=== PATIENT | male | born 1960 | race Caucasian/White ===

== ENCOUNTER → 2017-02-19 | Outpatient (CLI) | payer OTHER ==
--- NOTE | 2017-02-20 06:56 | CONS ---
DATE OF CONSULTATION: 02/19/2017 CONSULTATION/NEW PATIENT EVALUATION HISTORY OF PRESENT ILLNESS/SLEEP-WAKE EVALUATION: A 56-year-old gentleman who has been evaluated in the sleep center for obstructive sleep apnea-hypopnea syndrome. Patient had been diagnosed with obstructive sleep apnea about 10 years ago, was started on treatment with BiPAP and continued to use his BiPAP equipment all these years, but he lost 250 pounds since time when he had sleep studies. At that time his weight was about 600 pounds and presently he has significant difficulties with usage of his BiPAP equipment. The patient is also additionally on oxygen supplement during sleep with BiPAP 2 L per minute. SLEEP SCHEDULE: Patient's usual sleep schedule from 5 a.m. until 2 p.m. FALLING ASLEEP: No problem with falling asleep. He has TV set in bedroom. DURING SLEEP: He sleeps on the side or in the chair. He wakes up from sleep 2 times with stopped breathing during the sleep. DURING THE DAY/WAKE STATE: In the morning, he wakes up tired, has difficulties to pay attention, falling asleep during the day, has irritability, ( ) dysfunction. [place] Sleepiness Scale increased to 10. PAST MEDICAL HISTORY: Positive for diabetes mellitus, hypothyroidism, low testosterone level, deep venous thrombosis, endocarditis, pressure ulcers of the lower legs, and history of chronic cellulitis, history of sepsis. PAST SURGICAL HISTORY: Tracheostoma. MEDICATIONS: Venlafaxine, Opana, hydrocodone, metformin, simvastatin, Klor-Con, furosemide, aspirin, levothyroxine, testosterone depo injections, vitamins. SOCIAL HISTORY: Negative for smoking or using alcohol. REVIEW OF SYSTEMS: Multiple awakenings from sleep, sleepiness during the day, swelling of the legs. No fevers. No double vision. No recent chest pain. No shortness of breath. No abdominal pain. No bleeding episodes. No blood in urine. No seizure episodes. FAMILY HISTORY: Heart problems, hyperlipidemia, arthritis, sinus headaches, sleep apnea, insomnia, diabetes, thyroid problems, restless legs, crib . PHYSICAL EXAMINATION: During physical exam, a 56-year-old gentleman without distress. VITAL SIGNS: BP 143/73, HR 66, RR 16. Height 5 feet 10 inches. Weight 376. BMI 53.9. Neck 17 inches in circumference. Temperature 98.5. HEENT: PERRLA. EOMI. Oropharynx extremely low position of soft palate. Slight restriction of nasal breathing. NECK: Scar of the tracheostoma. LUNGS: A few wheezing. HEART: S1, S2 regular. No murmurs, gallops or rubs. ABDOMEN: Obese. EXTREMITIES: 1+ ankle edema. NORMALIZER: Awake, alert, and oriented x3. Cranial nerves 2 to 7 intact. There is no fasciculation or atrophy noted. No focal deficits observed. IMPRESSION: 1. Obstructive sleep apnea-hypopnea syndrome. Patient has difficulties with usage of BiPAP after losing around 250 pounds of weight, 2. Morbid obesity. Weight 376, body mass index 53.9. 3. Diabetes mellitus. 4. Hypothyroidism. 5. Low testosterone. 6. History of chronic cellulitis of the legs. 7. History of cellulitis of the abdomen. 8. History of pressure ulcers the legs. 9. History of endocarditis. 10. History of sepsis. PLAN: 1. CPAP and BiPAP titration for re-evaluation of effective pressure at the present time and then patient should be able to get new PAP machine. 2. Aggressive losing weight program, continue to lose weight. 3. Sleep hygiene with regular time in bed for at least 8 hours. 4. No driving if feeling any sleepiness. Thank you very much for allowing me to participate in the management your patient. Sincerely, Jaime Jeffery MD, PhD, FAASM. Diplomat of [place] [employer], Sleep Medicine Board by [place] [facility] [place]
== END | disposition home or self-care (01) ==
LOC: SLEEP 16:03
PROVIDERS: ATTEND Internal Medicine
DX: G47.33 Obstructive sleep apnea (adult) (pediatric) (principal); E66.01 Morbid (severe) obesity due to excess calories; E11.9 Type 2 diabetes mellitus without complications; E03.9 Hypothyroidism, unspecified; Z87.2 Personal history of diseases of the skin and subcutaneous tissue; Z86.79 Personal history of other diseases of the circulatory system
CPT/HCPCS: 99211

== ENCOUNTER → 2017-06-25 | Outpatient (CLI) | payer OTHER ==
--- NOTE | 2017-06-25 15:59 | MR ---
EXAMINATION TYPE: MR shoulder RT wo con DATE OF EXAM: 06/25/2017 COMPARISON: NONE HISTORY: Rt shoulder pain x 8 mos, no trauma TECHNIQUE: Multiplanar, multisequence imaging of the right shoulder is performed without contrast. Ex am extremely limited due to artifact. FINDINGS: Rotator Cuff: Limited study demonstrates findings suspicious for partial through thickness tear invol ving the anterior fibers of the supraspinatus tendon near the insertion without significant retractio n as visualized. As noted above the exam is severely limited. Tendinopathy and partial tear at the in sertion of the infraspinatus tendon also suspected. Subscapularis markedly limited grossly intact. At rophy of the infraspinatus and supraspinatus muscles noted. Acromioclavicular Joint: There is hypertrophic change of the AC joint. Glenohumeral Joint: Grossly demonstrates no sizable joint effusion. Labrum: Nondiagnostic due to artifact Biceps Tendon: Nondiagnostic due to the amount of artifact at the level of the bicipital groove. With in the rotator interval and biceps anchor and tendon appears intact. Bone marrow signal: Cystic changes involving the humeral head may be on the basis of impingement has a benign appearance. IMPRESSION: 1. Severely limited exam secondary artifact which may be related the patient's body habitus. Findings are suspicious for partial tear of the insertion anterior fibers supraspinatus. Tendinopathy and par tial tear near the insertion of the infraspinatus tendon also suspected without significant retractio n as visualized. 2. Appears to be a degree of atrophy of the supra and infraspinatus muscles greater atrophic changes involving the infraspinatus muscle. 3. Impingement secondary to AC joint arthropathy.
== END | disposition home or self-care (01) ==
LOC: RADMRIMAIN 14:52
PROVIDERS: ATTEND Internal Medicine
DX: M19.011 Primary osteoarthritis, right shoulder (principal); M62.511 Muscle wasting and atrophy, not elsewhere classified, right shoulder; M25.811 Other specified joint disorders, right shoulder

== ENCOUNTER → 2018-02-25 | Outpatient (CLI) | payer OTHER ==
--- NOTE | 2018-02-25 18:33 | PN ---
PROGRESS NOTE DATE OF SERVICE: 02/25/2018 This is a 57-year-old gentleman who has been followed in the sleep center for treatment of obstructive sleep apnea-hypopnea syndrome. The patient had CPAP/BiPAP titration in 2017, and after that he was recommended treatment with BiPAP at a pressure of 14/10 cm of water. Only about one month ago he received his BiPAP unit. He is trying to use the BiPAP unit, but he has problems with the full-face mask with significant leak from the mask, and the machine stops when the leak is present. I checked his BiPAP unit. Pressure on the machine is as recommended, 14/10 cm of water, but unfortunately patient was able to use the machine only one night, for above- mentioned reasons. [place] Sleepiness Scale today is 10. MEDICATIONS: 1. Gabapentin. 2. Venlafaxine. 3. Hydrocodone. 4. Metformin. 5. Simvastatin. 6. Klor-Con. 7. Furosemide. 8. Levothyroxine. 9. Testosterone. 10.Vitamins. PHYSICAL EXAMINATION: GENERAL A pleasant gentleman without distress. VITAL SIGNS: BP 112/70, HR 59, RR 16, weight 346.2, temperature 98.2, oxygen saturation at room air 97%. HEENT: PERRLA, EOMI. Evaluation of oropharynx showed tongue protrudes midline; extremely low position of soft palate. NECK: Supple. No JVD. Thyroid is not palpable. LUNGS: Clear to percussion and to auscultation. Good air exchange. No wheezing or rhonchi. HEART: S1, S2 regular. No murmurs, gallops or rubs. ABDOMEN: Obese. EXTREMITIES : No clubbing or cyanosis. KNOWLEDGE MANAGER: Awake, alert, and oriented X3. Cranial nerves 2 to 7 intact. There is no fasciculation or atrophy. noted. No focal deficits observed. IMPRESSION: 1. Obstructive sleep apnea-hypopnea syndrome. Patient has difficulties with usage of BiPAP equipment secondary to significant mask leak. 2. Obesity. 3. Severe periodic limb movements. 4. Diabetes mellitus. 5. Hypothyroidism. 6. Low testosterone level. 7. History of chronic leg cellulitis. 8. History of cellulitis of the abdomen. 9. History of endocarditis. 10.History of sepsis. PLAN: 1. We will try to fit the patient with a different style of full-face mask. We may consider using [place]. 2. Patient should use equipment every night for the whole night. 3. Losing weight. 4. Sleep hygiene with regular time in bed for at least 8 hours. 5. No driving if feeling any sleepiness. Thank you very much for allowing me to participate in the management of your patient. Sincerely, Jaime Jeffery MD, PhD, FAASM Diplomat of [place] [employer] [place] [employer] [facility] Ferdinand MMODL / LOLAN: [id number] /
== END | disposition home or self-care (01) ==
LOC: SLEEP 16:09
PROVIDERS: ATTEND Internal Medicine
DX: G47.33 Obstructive sleep apnea (adult) (pediatric) (principal); E66.9 Obesity, unspecified; G47.61 Periodic limb movement disorder; E11.9 Type 2 diabetes mellitus without complications; E03.9 Hypothyroidism, unspecified; E29.1 Testicular hypofunction; Z87.2 Personal history of diseases of the skin and subcutaneous tissue; Z86.79 Personal history of other diseases of the circulatory system; Z79.899 Other long term (current) drug therapy; Z79.84 Long term (current) use of oral hypoglycemic drugs; Z99.89 Dependence on other enabling machines and devices; Z86.19 Personal history of other infectious and parasitic diseases

== ENCOUNTER → 2018-04-20 | Outpatient (CLI) | payer OTHER ==
[2018-04-21 02:57] LABS: Urine Alcohol Negative (Negative); Urine Barbiturate Negative (Negative); Urine Cocaine Negative (Negative); Urine Methadone Negative (Negative); Urine Opiates Negative (Negative); Urine Phencyclidine Negative (Negative)
== END | disposition home or self-care (01) ==
LOC: LABMAIN 17:55
PROVIDERS: ATTEND Internal Medicine
DX: F11.20 Opioid dependence, uncomplicated (principal)
CPT/HCPCS: 80306

== ENCOUNTER 2018-09-05 18:33 | Inpatient (IN) | payer OTHER ==
[2018-09-05] MEDS ORDERED: ACETAMINOPHEN TAB 500 MG TAB PO STA (19:42)
[2018-09-05] MEDS ORDERED: IBUPROFEN 600 MG TAB PO STA (19:42)
[2018-09-05] MEDS ORDERED: VANCOMYCIN IV PER PHARMACY 1 EACH MISC MISCELLANE PRN (19:42)
[2018-09-05] MEDS ORDERED: SODIUM CHLORIDE 0.9% 1,000 ML IV STA (19:42)
--- NOTE | 2018-09-05 19:46 | ED ---
Fever HPI - General Chief Complaint: Fever Stated Complaint: blood infection/fever Time Seen by Provider: 09/05/18 18:55 Source: patient, RN notes reviewed, old records reviewed Mode of arrival: ambulatory Limitations: no limitations - History of Present Illness Initial Comments: This is a 58-year-old male the ER for evaluation. They presents for evaluation regarding fevers left leg pain left toe pain and edema of left middle toe, patient states he has severe history of ulcer and abscess. Sepsis as well MD Complaint: fever -: days(s) (2) Temperature Source: oral, tympanic Associated Symptoms: chills Treatments Prior to Arrival: none - Related Data Home Medications Medication Instructions Recorded Confirmed Aspirin 81 mg PO DAILY 10/25/15 09/06/18 Furosemide [Lasix] 40 mg PO DAILY 10/25/15 09/06/18 Hydrocodone/Acetaminophen [[place] 1 - 2 tab PO Q4H PRN 10/25/15 09/06/18 10-325] Levothyroxine Sodium [Synthroid] 200 mcg PO MOTUWETHFR 10/25/15 09/06/18 Simvastatin [Zocor] 40 mg PO HS 10/25/15 09/06/18 metFORMIN HCL 1,000 mg PO BID 10/25/15 09/06/18 Ergocalciferol (Vitamin D2) 50,000 unit PO Q7D 09/06/18 09/06/18 [Vitamin D2] Levothyroxine Sodium [Synthroid] 400 mcg PO SUSA 09/06/18 09/06/18 Morphine Sulfate ER [Ms Contin] 30 mg PO TID PRN 09/06/18 09/06/18 Potassium Chloride ER [K-Dur 20] 20 meq PO BID 09/06/18 09/06/18 Sildenafil Citrate [Sildenafil] 20 - 100 mg PO DAILY PRN 09/06/18 09/06/18 Testosterone Cypionate 200 mg IM Q7D 09/06/18 09/06/18 [Depo-Testosterone] Venlafaxine HCl [Effexor XR] 75 mg PO DAILY 09/06/18 09/06/18 Allergies Allergy/AdvReac Type Severity Reaction Status Date / Time latex Allergy Unknown Verified 09/06/18 09:06 Review of Systems ROS Statement: Those systems with pertinent positive or pertinent negative responses have been documented in the HPI. ROS Other: All systems not noted in ROS Statement are negative. Past Medical History Past Medical History: Diabetes Mellitus, Thyroid Disorder Additional Past Medical History / Comment(s): sepsis with unknown etiology. Pt also c/o non healing ulcer R great toe. cellulitis R great . Other HX: IDDM, 2006 or 2006 sepsis requiring mechanical ventilation, pressure ulcers on ankles in the past, renal failure with dialysis in , neuropathy bilateral legs and feet, hypothyroidism, lower leg edema at times, L leg fracture as child. History of Any Multi-Drug Resistant Organisms: None Reported Past Surgical History: Tonsillectomy Additional Past Surgical History / Comment(s): 2005/2006 tracheostomy, Jesus Manuel catheter in and out, piccline in and out. Past Anesthesia/Blood Transfusion Reactions: No Reported Reaction Additional Past Anesthesia/Blood Transfusion Reaction / Comment(s): Pt has received blood without reaction in the past. Past Psychological History: Depression Smoking Status: Former smoker Past Alcohol Use History: None Reported Past Drug Use History: None Reported - Past Family History Father History Unknown: Yes Additional Family Medical History / Comment(s): Pt was adopted and does not know any family health hx. Mother History Unknown: Yes Additional Family Medical History / Comment(s): Pt was adopted and does not know any family health hx. General Exam - General Exam Comments Initial Comments: Left lower extremity and left foot cellulitis and edema erythema the left middle toe Limitations: no limitations General appearance: alert, in no apparent distress Head exam: Present: atraumatic, normocephalic, normal inspection Eye exam: Present: normal appearance, PERRL, EOMI. Absent: scleral icterus, conjunctival injection, periorbital swelling ENT exam: Present: normal exam, mucous membranes moist Neck exam: Present: normal inspection. Absent: tenderness, meningismus, lymphadenopathy Respiratory exam: Present: normal lung sounds bilaterally. Absent: respiratory distress, wheezes, rales, rhonchi, stridor Cardiovascular Exam: Present: regular rate, normal rhythm, normal heart sounds. Absent: systolic murmur, diastolic murmur, rubs, gallop, clicks GI/Abdominal exam: Present: soft, normal bowel sounds. Absent: distended, tenderness, guarding, rebound, rigid Extremities exam: Present: normal inspection, full ROM, normal capillary refill. Absent: tenderness, pedal edema, joint swelling, calf tenderness Back exam: Present: normal inspection Neurological exam: Present: alert, oriented X3, CN II-XII intact Psychiatric exam: Present: normal affect, normal mood Skin exam: Present: warm, dry, intact, normal color. Absent: rash Course Vital Signs 09/05/18 09/05/18 09/05/18 18:56 20:18 20:30 Temperature 102.7 F H Pulse Rate 84 85 81 Respiratory 18 18 18 Rate Blood Pressure 117/63 121/73 121/73 O2 Sat by Pulse 97 97 98 Oximetry 09/05/18 09/05/18 09/05/18 20:56 21:00 22:00 Temperature 101.4 F H Pulse Rate 75 69 Respiratory 18 18 Rate Blood Pressure 111/67 96/58 O2 Sat by Pulse 96 96 Oximetry Medical Decision Making - Medical Decision Making 58 male the ER for evaluation of fever. Here with leg pain and swelling, patient has significant middle left toe pain and edema. With erythema, will be admitted for IV antibiotics - Lab Data Result diagrams: 09/05/18 19:05 09/05/18 19:05 Lab Results 09/05/18 09/05/18 09/05/18 Range/Units 19:05 19:05 19:05 WBC 9.3 (3.8-10.6) k/uL RBC 4.30 (4.30-5.90) m/uL Hgb 13.4 (13.0-17.5) gm/dL Hct 40.4 (39.0-53.0) % MCV 93.8 (80.0-100.0) fL MCH 31.2 (25.0-35.0) pg MCHC 33.3 (31.0-37.0) g/dL RDW 13.3 (11.5-15.5) % Plt Count 140 L (150-450) k/uL Neutrophils % 87 % Lymphocytes % 6 % Monocytes % 5 % Eosinophils % 1 % Basophils % 0 % Neutrophils # 8.0 H (1.3-7.7) k/uL Lymphocytes # 0.5 L (1.0-4.8) k/uL Monocytes # 0.5 (0-1.0) k/uL Eosinophils # 0.1 (0-0.7) k/uL Basophils # 0.0 (0-0.2) k/uL Sodium 138 (137-145) mmol/L Potassium 4.2 (3.5-5.1) mmol/L Chloride 103 (98-107) mmol/L Carbon Dioxide 24 (22-30) mmol/L Anion Gap 11 mmol/L BUN 17 (9-20) mg/dL Creatinine 1.30 H (0.66-1.25) mg/dL Est GFR (CKD-EPI)AfAm 70 (>60 ml/min/1.73 sqM) Est GFR (CKD-EPI)NonAf 61 (>60 ml/min/1.73 sqM) Glucose 125 H (74-99) mg/dL Estimated Ave Glu mg/dL Hemoglobin A1c (4.0-6.0) % Plasma Lactic Acid Khurram 1.3 (0.7-2.0) mmol/L Calcium 9.6 (8.4-10.2) mg/dL Total Bilirubin 0.9 (0.2-1.3) mg/dL AST 67 H (17-59) U/L ALT 51 (21-72) U/L Alkaline Phosphatase 87 (38-126) U/L Total Protein 7.5 (6.3-8.2) g/dL Albumin 4.2 (3.5-5.0) g/dL 09/05/18 Range/Units 19:05 WBC (3.8-10.6) k/uL RBC (4.30-5.90) m/uL Hgb (13.0-17.5) gm/dL Hct (39.0-53.0) % MCV (80.0-100.0) fL MCH (25.0-35.0) pg MCHC (31.0-37.0) g/dL RDW (11.5-15.5) % Plt Count (150-450) k/uL Neutrophils % % Lymphocytes % % Monocytes % % Eosinophils % % Basophils % % Neutrophils # (1.3-7.7) k/uL Lymphocytes # (1.0-4.8) k/uL Monocytes # (0-1.0) k/uL Eosinophils # (0-0.7) k/uL Basophils # (0-0.2) k/uL Sodium (137-145) mmol/L Potassium (3.5-5.1) mmol/L Chloride (98-107) mmol/L Carbon Dioxide (22-30) mmol/L Anion Gap mmol/L BUN (9-20) mg/dL Creatinine (0.66-1.25) mg/dL Est GFR (CKD-EPI)AfAm (>60 ml/min/1.73 sqM) Est GFR (CKD-EPI)NonAf (>60 ml/min/1.73 sqM) Glucose (74-99) mg/dL Estimated Ave Glu mg/dL 111 Hemoglobin A1c 5.5 (4.0-6.0) % Plasma Lactic Acid Khurram (0.7-2.0) mmol/L Calcium (8.4-10.2) mg/dL Total Bilirubin (0.2-1.3) mg/dL AST (17-59) U/L ALT (21-72) U/L Alkaline Phosphatase (38-126) U/L Total Protein (6.3-8.2) g/dL Albumin (3.5-5.0) g/dL - EKG Data -: EKG Interpreted by Me (EKG shows sinus rhythm rate of 76, IN 166, QRS 100, QTC 420) - Radiology Data Radiology results: report reviewed (X-ray chest and x-ray left foot negative for acute injury), image reviewed Disposition Clinical Impression: Cellulitis of great toe, right, Fever Disposition: ADMITTED IP TO THIS [facility] Condition: Good Is patient prescribed a controlled substance at d/c from ED?: No
[2018-09-05] MEDS ORDERED: VANCOMYCIN 2,500 MG in SODIUM CHLORIDE 0.9% 500 ML 500 ML IVPB STA (19:54)
[2018-09-05 20:03] LABS: Basophils % (A) 0 %; Eosinophils # (A) 0.1 k/uL (0-0.7); Eosinophils % (A) 1 %; HCT 40.4 % (39.0-53.0); HGB 13.4 gm/dL (13.0-17.5); Lymphocytes # (A) 0.5 k/uL (1.0-4.8); Lymphocytes % (A) 6 %; MCH 31.2 pg (25.0-35.0); MCHC 33.3 g/dL (31.0-37.0); MCV 93.8 fL (80.0-100.0); Mean Platelet Volume 6.6; Monocytes # (A) 0.5 k/uL (0-1.0); Monocytes % (A) 5 %; Neutrophils % (A) 87 %; Platelet Count 140 k/uL (150-450); RDW 13.3 % (11.5-15.5); WBC 9.3 k/uL (3.8-10.6)
[2018-09-05 20:20] LABS: Albumin 4.2 g/dL (3.5-5.0); Calcium 9.6 mg/dL (8.4-10.2); Potassium 4.2 mmol/L (3.5-5.1); Total Bilirubin 0.9 mg/dL (0.2-1.3); Total Protein 7.5 g/dL (6.3-8.2)
[2018-09-05 20:39] LABS: Appearance,Urine Clear (Clear); Bilirubin,Urine Negative (Negative); Blood,Urine Negative (Negative); Color,Urine Light Yellow; Glucose,Urine (UA) Negative (Negative); Ketones,Urine Negative (Negative); Leukocyte Esterase,Urine Negative (Negative); Nitrite,Urine Negative (Negative); Protein,Urine Negative (Negative); Specific Gravity,Urine 1.008 (1.001-1.035); Urobilinogen,Urine <2.0 mg/dL (<2.0)
--- NOTE | 2018-09-05 20:48 | XR ---
EXAMINATION TYPE: XR foot complete LT DATE OF EXAM: 09/05/2018 COMPARISON: None HISTORY: Diabetic ulcer, pain TECHNIQUE: Three-view left foot FINDINGS: Mild hallux valgus deformity is present. No acute osseous abnormality is identified. No fra ctures are evident. No cortical erosion is identified. Hammertoes are present. Plantar calcaneal heel spur is present. IMPRESSION: 1. No suspicious acute changes identified.
--- NOTE | 2018-09-05 21:48 | XR ---
EXAMINATION TYPE: XR chest 2V DATE OF EXAM: 09/05/2018 COMPARISON: 10/25/2015 INDICATION: Cough TECHNIQUE: Frontal and lateral views of the chest are obtained. Frontal view is somewhat apical lord otic. FINDINGS: The heart size is normal. The pulmonary vasculature is normal. The lungs are clear. IMPRESSION: 1. No acute pulmonary process.
[2018-09-05] MEDS: SODIUM CHLORIDE 0.45% 1,000 ML IV SCH (23:02)
[2018-09-06] MEDS: SODIUM CHLORIDE 0.45% 1,000 ML IV SCH ×3 (02:23→15:22)
[2018-09-06] MEDS ORDERED: ACETAMINOPHEN TAB 325 MG TAB PO PRN (02:31)
[2018-09-06] MEDS ORDERED: HYDROcodone/APAP 5-325MG 1 EACH TAB PO PRN (02:31)
[2018-09-06] MEDS ORDERED: ONDANSETRON 4 MG/2 ML VIAL IVP PRN (02:31)
[2018-09-06] MEDS ORDERED: NALOXONE 0.4 MG/ML 1 ML VIAL IV PRN (02:31)
[2018-09-06] MEDS ORDERED: CALCIUM CARBONATE 500 MG CHEWABLE PO PRN (02:31)
[2018-09-06] MEDS ORDERED: MELATONIN 3 MG TABLET PO PRN (03:30)
--- NOTE | 2018-09-06 04:29 | P.HPIM ---
History of Present Illness H&P Date: 09/06/18 Chief Complaint: Fever Patient is a 58-year-old male with history of diabetes type 2, morbid obesity, history of sepsis approximately 10 years ago. Patient states at that time he weighed over 600 pounds, was in a coma, and had a prolonged hospital stay including vent dependent respiratory failure requiring him to have a tracheostomy which has since been removed. Patient states since that time he has an episode of sepsis about every year usually GI or skin origin. He states he has not had any episodes for the last 2 years. About 2 days prior to admission he developed fever and redness of his right middle toe. His fiance, who is also his caregiver clipped his toenails at that time. Patient developed worsening pain in his toe with swelling and fevers so he came to the emergency room for evaluation. In the emergency room patient was febrile he was noted to have a cellulitis of his right middle toe he was given a dose of vancomycin and Rocephin and admitted for further workup and management. Patient denies nausea , vomiting, diarrhea, abdominal pain, chest pain. Review of Systems Review of systems done and negative other than stated above Past Medical History Past Medical History: Diabetes Mellitus, Thyroid Disorder Additional Past Medical History / Comment(s): sepsis with unknown etiology. Pt also c/o non healing ulcer R great toe. cellulitis R great . Other HX: IDDM, 2006 or 2007 sepsis requiring mechanical ventilation, pressure ulcers on ankles in the past, renal failure with dialysis in 2005/2006, neuropathy bilateral legs and feet, hypothyroidism, lower leg edema at times, L leg fracture as child. History of Any Multi-Drug Resistant Organisms: None Reported Past Surgical History: Tonsillectomy Additional Past Surgical History / Comment(s): 2005/2006 tracheostomy, Jesus Manuel catheter in and out, piccline in and out. Past Anesthesia/Blood Transfusion Reactions: No Reported Reaction Additional Past Anesthesia/Blood Transfusion Reaction / Comment(s): Pt has received blood without reaction in the past. Past Psychological History: Depression Additional Psychological History / Comment(s): Pt states his depression is well controlled. He lives with his significant other. He is independent. He uses no assistive devices. He drives. He has no home care. Smoking Status: Former smoker Past Alcohol Use History: None Reported Additional Past Alcohol Use History / Comment(s): Pt started smoking at age 16 yrs and quit at age 21 yrs. Past Drug Use History: None Reported - Past Family History Father History Unknown: Yes Additional Family Medical History / Comment(s): Pt was adopted and does not know any family health hx. Mother History Unknown: Yes Additional Family Medical History / Comment(s): Pt was adopted and does not know any family health hx. Medications and Allergies Home Medications Medication Instructions Recorded Confirmed Type Aspirin 81 mg PO DAILY 10/25/15 09/05/18 History Furosemide [Lasix] 40 mg PO DAILY 10/25/15 09/05/18 History Hydrocodone/Acetaminophen [[place] 2 tab PO Q4H PRN 10/25/15 09/05/18 History 10-325] Levothyroxine Sodium [Synthroid] 200 mcg PO MOTUWETHFR 10/25/15 09/05/18 History Simvastatin [Zocor] 40 mg PO HS 10/25/15 09/05/18 History Venlafaxine HCl [Effexor] 25 mg PO HS 10/25/15 09/05/18 History metFORMIN HCL 1,000 mg PO BID 10/25/15 09/05/18 History Potassium Chloride [Klor-Con 20 meq PO DAILY #0 10/26/15 09/05/18 Rx Packets] Gabapentin [Neurontin] 300 mg PO TID 09/06/18 09/06/18 History Levothyroxine Sodium 300 mcg PO 09/06/18 History Morphine Sulfate ER [Ms Contin] 30 mg PO Q8H PRN 09/06/18 09/06/18 History Allergies Allergy/AdvReac Type Severity Reaction Status Date / Time latex Allergy Unknown Verified 09/05/18 18:55 Physical Exam Vitals: Vital Signs Temp Pulse Resp BP BP Pulse Ox 09/06/18 03:22 97.5 F L 09/05/18 22:35 100.7 F H 20 152/71 97 09/05/18 22:00 69 18 96/58 96 09/05/18 21:00 75 18 111/67 96 09/05/18 20:56 101.4 F H 09/05/18 20:30 81 18 121/73 98 09/05/18 20:18 85 18 121/73 97 09/05/18 18:56 102.7 F H 84 18 117/63 97 Intake and Output 11/02/1709/05/18 09/06/18 14:59 22:59 06:59 Other: Weight 146.057 kg 146.057 kg - Constitutional General appearance: morbidly obese - EENT Eyes: PERRLA ENT: normal oropharynx Ears: bilateral: normal - Respiratory Respiratory: bilateral: CTA - Cardiovascular Rhythm: regular Heart sounds: normal: S1, S2 - Gastrointestinal General gastrointestinal: normal bowel sounds - Integumentary Integumentary: cellulitis (Redness and swelling of the right middle toe, venous stasis changes bilaterally) - Neurologic Neurologic: CNII-XII intact, focal deficits (Diminished sensation bilaterally of the lower extremities) - Musculoskeletal Musculoskeletal: strength equal bilaterally - Psychiatric Psychiatric: A&O x's 3, appropriate affect, intact judgment & insight Results CBC & Chem 7: 09/05/18 19:05 09/05/18 19:05 Labs: Abnormal Lab Results - Last 24 Hours (Table) 09/05/18 09/05/18 Range/Units 19:05 19:05 Plt Count 140 L (150-450) k/uL Neutrophils # 8.0 H (1.3-7.7) k/uL Lymphocytes # 0.5 L (1.0-4.8) k/uL Creatinine 1.30 H (0.66-1.25) mg/dL Glucose 125 H (74-99) mg/dL AST 67 H (17-59) U/L Thrombosis Risk Factor Assmnt - Choose All That Apply Any of the Below Risk Factors Present?: Yes Each Factor Represents 1 point: Age 41-60 years, Obesity (BMI >25) Each Risk Factor Represents 3 Points: History of DVT/PE Thrombosis Risk Factor Assessment Total Risk Factor Score: 5 Thrombosis Risk Factor Assessment Level: High Risk Assessment and Plan (1) Cellulitis of great toe, right Narrative/Plan: Patient with right middle toe cellulitis and a history of cellulitis in the past , continue treatment with Rocephin and vancomycin, it is no significant improvement then we will get imaging of the great toe. Pain control with oral medications as at home await blood cultures Current Visit: Yes Status: Acute Code(s): L03.031 - CELLULITIS OF RIGHT TOE SNOMED Code(s): 44369317 (2) Diabetes Narrative/Plan: Patient uncontrolled diabetes type 2 with oral medications, has used insulin in the past, we'll continue his home regiment and sliding scale coverage Current Visit: Yes Status: Acute Code(s): E11.9 - TYPE 2 DIABETES MELLITUS WITHOUT COMPLICATIONS SNOMED Code(s): 61889013 (3) Neuropathy Narrative/Plan: Patient diabetes-induced neuropathy we'll continue his gabapentin and [place] on morphine as needed Current Visit: Yes Status: Acute Code(s): G62.9 - POLYNEUROPATHY, UNSPECIFIED SNOMED Code(s): 312484476 (4) Morbid obesity with BMI of 40.0-44.9, adult Narrative/Plan: Continue with management as at home patient has office almost 300 pounds continue current treatment Current Visit: Yes Status: Acute Code(s): E66.01 - MORBID (SEVERE) OBESITY DUE TO EXCESS CALORIES; Z68.41 - BODY MASS INDEX (BMI) 40.0-44.9, ADULT SNOMED Code(s): 801733442 (5) Hypothyroidism Narrative/Plan: Continue home Synthroid Current Visit: Yes Status: Acute Code(s): E03.9 - HYPOTHYROIDISM, UNSPECIFIED SNOMED Code(s): 73421815 (6) Fever Narrative/Plan: She would fever no evidence of severe sepsis we'll give IV hydration and await culture results at this time likely source diabetic feet and cellulitis Current Visit: Yes Status: Acute Code(s): R50.9 - FEVER, UNSPECIFIED SNOMED Code(s): 205420055 Plan: Anticipated patient name greater than to midnight stay given his history of sepsis complicated by his diabetic neuropathy
[2018-09-06] MEDS: LEVOTHYROXINE 100 MCG TAB PO SCH (05:31)
[2018-09-06 07:38] LABS: Glucose,Whole Blood 124 mg/dL (75-99)
[2018-09-06] MEDS: ENOXAPARIN 40 MG/0.4 ML SYRINGE SQ SCH (08:11)
[2018-09-06] MEDS: FUROSEMIDE 40 MG TAB PO SCH (08:11)
[2018-09-06] MEDS: ASPIRIN 81 MG PO SCH (08:11)
[2018-09-06] MEDS: metFORMIN 500 MG TAB PO SCH ×2 (08:12→22:02)
[2018-09-06] MEDS: GABAPENTIN 300 MG CAP PO SCH ×3 (08:12→22:02)
[2018-09-06] MEDS: MORPHINE SULFATE ER 30 MG TABLET PO PRN (08:22)
[2018-09-06] MEDS: VANCOMYCIN 2,500 MG in SODIUM CHLORIDE 0.9% 500 ML 500 ML IVPB SCH (08:55)
[2018-09-06] MEDS ORDERED: HYDROcodone/APAP 10-325MG 1 EACH TAB PO PRN (11:01)
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
[2018-09-06 12:07] LABS: Glucose,Whole Blood 136 mg/dL (75-99)
[2018-09-06] MEDS: INSULIN ASPART 100 UNIT/ML 1 ML 10 ML VIAL SQ SCH ×2 (13:28→17:28)
[2018-09-06] MEDS: HYDROcodone/APAP 10-325MG 1 EACH TAB PO PRN ×2 (15:22→22:08)
[2018-09-06 15:27] LABS: Hemoglobin A1C 5.5 % (4.0-6.0)
[2018-09-06 17:21] LABS: Glucose,Whole Blood 111 mg/dL (75-99)
[2018-09-06 21:03] LABS: Glucose,Whole Blood 126 mg/dL (75-99)
[2018-09-06] MEDS: VENLAFAXINE HCL 25 MG TAB PO SCH (22:02)
[2018-09-06] MEDS: ATORVASTATIN 20 MG TAB PO SCH (22:02)
[2018-09-07] MEDS: SODIUM CHLORIDE 0.45% 1,000 ML IV SCH ×4 (00:36→17:48)
[2018-09-07] MEDS: LEVOTHYROXINE 100 MCG TAB PO SCH (06:22)
[2018-09-07 07:15] LABS: Glucose,Whole Blood 100 mg/dL (75-99)
[2018-09-07] MEDS: INSULIN ASPART 100 UNIT/ML 1 ML 10 ML VIAL SQ SCH ×3 (07:25→16:48)
[2018-09-07 08:29] LABS: Basophils % (A) 0 %; Eosinophils # (A) 0.2 k/uL (0-0.7); Eosinophils % (A) 4 %; HCT 36.8 % (39.0-53.0); HGB 12.1 gm/dL (13.0-17.5); Lymphocytes # (A) 0.8 k/uL (1.0-4.8); Lymphocytes % (A) 14 %; MCH 31.1 pg (25.0-35.0); MCHC 32.9 g/dL (31.0-37.0); MCV 94.5 fL (80.0-100.0); Mean Platelet Volume 6.7; Monocytes # (A) 0.4 k/uL (0-1.0); Monocytes % (A) 7 %; Neutrophils % (A) 71 %; Platelet Count 152 k/uL (150-450); RDW 13.2 % (11.5-15.5); WBC 5.6 k/uL (3.8-10.6)
[2018-09-07 08:45] LABS: Calcium 8.9 mg/dL (8.4-10.2); Potassium 4.3 mmol/L (3.5-5.1)
[2018-09-07 09:04] LABS: C Reactive Protein 85.3 mg/L (<10.0)
[2018-09-07] MEDS: VANCOMYCIN 2,500 MG in SODIUM CHLORIDE 0.9% 500 ML 500 ML IVPB SCH (09:12)
[2018-09-07] MEDS: ASPIRIN 81 MG PO SCH (09:12)
--- NOTE | 2018-09-07 09:12 | P.PN ---
Subjective Progress Note Date: 09/07/18 Principal diagnosis: Cellulitis patient was seen and examined. No acute events overnight. No fever or chills per patient. Patient reports improvement in the redness of his left lower extremity. He endorses chronic neuropathic pain of his feet bilaterally. He has no other complaints this morning. He denies chest pain, shortness of breath or palpitations. Objective - Vital Signs Vital signs: Vital Signs Temp 97.5 F L 09/07/18 07:39 Pulse 60 09/07/18 07:39 Resp 18 09/07/18 07:39 BP 101/57 09/07/18 07:39 Pulse Ox 95 09/07/18 07:39 Intake & Output 09/06/18 09/07/18 09/07/18 18:59 06:59 18:59 Intake Total 240 Balance 240 Intake: Oral 240 Other: Voiding Method Toilet Toilet Urinal # Voids 2 2 1 - Exam General: [non toxic], [no distress], [appears at stated age] Derm: [warm], [dry] Head: [atraumatic], [normocephalic], [symmetric] Eyes: [EOMI], [no lid lag], [anicteric sclera] Mouth: [no lip lesion], [mucus membranes moist] Cardiovascular: [S1S2 reg], [no murmur], [positive DP pulse bilateral], Lungs: [CTA bilateral], [no rhonchi, no rales] , [no accessory muscle use] Abdominal: [soft], [ nontender to palpation], [obese], [no appreciable organomegaly] Ext: [erythema extending from the left third toe to the midshin area], [1+ ed[place]ain the left lower extremity], [no contractures] Neuro: [no focal neuro deficits] Psych: [Alert], [oriented], [appropriate affect] - Labs CBC & Chem 7: 09/07/18 07:42 09/07/18 07:42 Labs: Abnormal Lab Results - Last 24 Hours (Table) 09/06/18 09/06/18 09/06/18 Range/Units 12:05 17:14 20:54 RBC (4.30-5.90) m/uL Hgb (13.0-17.5) gm/dL Hct (39.0-53.0) % Lymphocytes # (1.0-4.8) k/uL Chloride (98-107) mmol/L Glucose (74-99) mg/dL POC Glucose (mg/dL) 136 H 111 H 126 H (75-99) mg/dL 09/07/18 09/07/18 09/07/18 Range/Units 07:13 07:42 07:42 RBC 3.90 L (4.30-5.90) m/uL Hgb 12.1 L (13.0-17.5) gm/dL Hct 36.8 L (39.0-53.0) % Lymphocytes # 0.8 L (1.0-4.8) k/uL Chloride 108 H (98-107) mmol/L Glucose 106 H (74-99) mg/dL POC Glucose (mg/dL) 100 H (75-99) mg/dL Microbiology - Last 24 Hours (Table) 09/05/18 19:05 Blood Culture Gram Stain - Preliminary Blood Blood Culture - Preliminary Strep agalactiae - (group b) 09/05/18 19:05 Blood Culture - Final Blood 09/05/18 20:10 Urine Culture - Preliminary Urine,Voided Assessment and Plan Assessment: Assessment and Plan 1. LLE cellulitis: Tmax 100.5F on 09/06 at 3PM but no leukocytosis. Lactic acid 1.3. Low concern for sepsis. Severe onychomycosis likely source of entry. Foot XR is negative for osteomyelitis. Tylenol 650 mg PO Q6 PRN for fever. Continue Ceftriaxone 1g IV QD and Vancomycin 2500 mg IV QD. BCx + for Group B strep. Continue NS 150 cc/h. FU BCx (final), repeat BCx and LLE Duplex to r/o DVT. FU ESR and CRP. FU ID consult and PT consult. 2. DM: POC glucose 100. A1c 5.3 06/2018. Continue Metformin 1000 mg PO BID. Start ISS. Accuchecks TID. Diabetic diet. Hypoglycemic precautions. FU A1c 3. Peripheral neuropathy: Pain control with Gabapentin 300 mg PO TID, Effexor 25 mg PO QHS, MS Contin 30 mg PO TID PRN, [place] 10 1-2 tab PO Q6H PRN. 4. Hypothyroidism: Continue Synthroid 200 mcg PO MotoFri 5. ASCVD risk: Continue ASA 81 mg PO QD, Lipitor 20 mg PO QHS. 6. DVT/GI Prophylaxis: Lovenox 40 mg SUBCUT QD. Patient is continuing to improve. BCx + for group B strep. He is on Vancomycin and Ceftriaxone. Awaiting sensitivities. FU Duplex. ID on consult.
[2018-09-07] MEDS: metFORMIN 500 MG TAB PO SCH ×2 (09:13→21:40)
[2018-09-07] MEDS: ENOXAPARIN 40 MG/0.4 ML SYRINGE SQ SCH (09:13)
[2018-09-07] MEDS: GABAPENTIN 300 MG CAP PO SCH ×3 (09:13→21:40)
[2018-09-07] MEDS: FUROSEMIDE 40 MG TAB PO SCH (09:13)
[2018-09-07] MEDS: HYDROcodone/APAP 10-325MG 1 EACH TAB PO PRN ×2 (09:14→21:43)
[2018-09-07 10:19] LABS: Erythrocyte Sedimentation Rate 62 mm/hr (0-15)
--- NOTE | 2018-09-07 11:00 | US ---
EXAMINATION TYPE: US venous doppler duplex LE LT DATE OF EXAM: 09/07/2018 10:17 AM COMPARISON: NONE CLINICAL HISTORY: Swelling and redness. On aspirin. Redness. Calf redness x a few days per patient. Patient states somewhat hurts but hx of infection. SIDE PERFORMED: Left TECHNIQUE: The lower extremity deep venous system is examined utilizing real time linear array sonog moy with graded compression, doppler sonography and color-flow sonography. VESSELS IMAGED: External Iliac Vein (EIV) Common Femoral Vein Deep Femoral Vein Greater Saphenous Vein * Femoral Vein Popliteal Vein Small Saphenous Vein * Proximal Calf Veins (* superficial vessels) Left Leg: Negative for DVT. Prominent lymph nodes in left groin, largest - 2.5 x 0.8 cm. IMPRESSION: 1. Left lower extremity ultrasound negative for deep venous thrombosis. 2. Left inguinal lymphadenopathy.
[2018-09-07 11:29] LABS: Glucose,Whole Blood 117 mg/dL (75-99)
[2018-09-07 16:47] LABS: Glucose,Whole Blood 106 mg/dL (75-99)
[2018-09-07] MEDS: MORPHINE SULFATE ER 30 MG TABLET PO PRN (16:49)
[2018-09-07 20:47] LABS: Glucose,Whole Blood 126 mg/dL (75-99)
[2018-09-07] MEDS: ATORVASTATIN 20 MG TAB PO SCH (21:40)
[2018-09-07] MEDS: VENLAFAXINE HCL 25 MG TAB PO SCH (21:40)
[2018-09-08] MEDS: SODIUM CHLORIDE 0.45% 1,000 ML IV SCH ×2 (00:56→09:44)
[2018-09-08] MEDS: LEVOTHYROXINE 100 MCG TAB PO SCH (06:46)
[2018-09-08 07:31] LABS: Glucose,Whole Blood 95 mg/dL (75-99)
[2018-09-08] MEDS ORDERED: VANCOMYCIN TROUGH DUE 1 EACH MISC MISCELLANE ONE (08:00)
[2018-09-08] MEDS: INSULIN ASPART 100 UNIT/ML 1 ML 10 ML VIAL SQ SCH (08:13)
[2018-09-08 09:07] LABS: Calcium 9.2 mg/dL (8.4-10.2); Potassium 3.9 mmol/L (3.5-5.1)
[2018-09-08] MEDS: metFORMIN 500 MG TAB PO SCH ×2 (09:45→20:52)
[2018-09-08] MEDS: GABAPENTIN 300 MG CAP PO SCH ×3 (09:45→20:53)
[2018-09-08] MEDS: ENOXAPARIN 40 MG/0.4 ML SYRINGE SQ SCH (09:45)
[2018-09-08] MEDS: ASPIRIN 81 MG PO SCH (09:46)
[2018-09-08] MEDS: FUROSEMIDE 40 MG TAB PO SCH (09:46)
[2018-09-08] MEDS: HYDROcodone/APAP 10-325MG 1 EACH TAB PO PRN ×2 (09:49→20:57)
[2018-09-08] MEDS: VANCOMYCIN 2,500 MG in SODIUM CHLORIDE 0.9% 500 ML 500 ML IVPB SCH (09:56)
[2018-09-08] MEDS ORDERED: diphenhydrAMINE 25 MG CAP PO PRN (12:25)
--- NOTE | 2018-09-08 12:32 | P.PN ---
Subjective Progress Note Date: 09/08/18 Principal diagnosis: Cellulitis Patient was seen and examined. No acute events overnight. Patient continues to report left lower extremity swelling, no improvement since yesterday. Patient reports a generalized rash as well with mild pruritus. He denies any fever or chills. No chest pain or shortness of breath. He is ambulating perfectly fine. Objective - Vital Signs Vital signs: Vital Signs Temp 97.0 F L 09/08/18 12:16 Pulse 65 09/08/18 12:16 Resp 17 09/08/18 12:16 BP 125/78 09/08/18 12:16 Pulse Ox 97 09/08/18 12:16 Intake & Output 09/07/18 09/08/18 09/08/18 18:59 06:59 18:59 Intake Total 240 Balance 240 Weight 146.057 kg Intake: Oral 240 Other: Voiding Method Toilet Toilet Toilet # Voids 1 2 2 - Exam General: [non toxic], [no distress], [appears at stated age] Derm: [warm], [dry], [generalized maculopapular rash of the inner thighs.] Head: [atraumatic], [normocephalic], [symmetric] Eyes: [EOMI], [no lid lag], [anicteric sclera] Mouth: [no lip lesion], [mucus membranes moist] Cardiovascular: [S1S2 reg], [no murmur], [positive DP pulse bilateral], Lungs: [CTA bilateral], [no rhonchi, no rales] , [no accessory muscle use] Abdominal: [soft], [ nontender to palpation], [obese], [no appreciable organomegaly] Ext: [erythema extending from the left third toe to the midshin area], [1+ edema in the left lower extremity], [no contractures] Neuro: [no focal neuro deficits] Psych: [Alert], [oriented], [appropriate affect] - Labs CBC & Chem 7: 09/07/18 07:42 09/08/18 08:22 Labs: Abnormal Lab Results - Last 24 Hours (Table) 09/07/18 09/07/18 09/08/18 Range/Units 16:45 20:45 08:22 Chloride 108 H (98-107) mmol/L Creatinine 1.27 H (0.66-1.25) mg/dL Glucose 105 H (74-99) mg/dL POC Glucose (mg/dL) 106 H 126 H (75-99) mg/dL Microbiology - Last 24 Hours (Table) 09/05/18 19:05 Blood Culture Gram Stain - Final Blood Blood Culture - Final Strep agalactiae - (group b) 09/06/18 16:59 Blood Culture - Preliminary Blood No Growth after 24 hours 09/05/18 20:10 Urine Culture - Final Urine,Voided Assessment and Plan Assessment: Assessment and Plan 1. LLE cellulitis: Tmax 100.5F on 09/06 at 3PM but no leukocytosis. Lactic acid 1.3. Low concern for sepsis. Severe onychomycosis likely source of entry. Foot XR is negative for osteomyelitis. Tylenol 650 mg PO Q6 PRN for fever. DC'd Ceftriaxone and Vancomycin, started Levofloxacin 750 mg IV QD. BCx + for Group B strep. Repeat BCx prelim negative after 24H. LLE Duplex negative for DVT. ESR 62 and CRP 85.3, elevated. Continue NS 150 cc/h. FU repeat BCx (final). FU ID consult and PT consult 2. DM: POC glucose 105. A1c 5.5. Continue Metformin 1000 mg PO BID. Start ISS. Accuchecks TID. Diabetic diet. Hypoglycemic precautions. 3. Peripheral neuropathy: Pain control with Gabapentin 300 mg PO TID, Effexor 25 mg PO QHS, MS Contin 30 mg PO TID PRN, [place] 10 1-2 tab PO Q6H PRN. 4. Hypothyroidism: Continue Synthroid 200 mcg PO MotoFri. 5. ASCVD risk: Continue ASA 81 mg PO QD, Lipitor 20 mg PO QHS. 6. DVT/GI Prophylaxis: Lovenox 40 mg SUBCUT QD. BCx + for group B strep. Abx switched to Levaquin. Erythema unchanged from yesterdays exam. Repeat BCx pending. ID on consult. PT evaluation pending. Likely DC in 1 to 2 days.
[2018-09-08] MEDS: LEVOFLOXACIN 750MG-D5W PMX 750 MG in DEXTROSE/WATER 1 150ML.BAG IVPB SCH (14:13)
[2018-09-08] MEDS: VENLAFAXINE HCL 25 MG TAB PO SCH (20:53)
[2018-09-08] MEDS: ATORVASTATIN 20 MG TAB PO SCH (20:53)
--- NOTE | 2018-09-08 23:54 | P.CONS ---
History of Present Illness - Reason for Consult Consult date: 09/08/18 - Chief Complaint pain left leg - History of Present Illness 58-year-old male with a history of superobesity who has had significant weight loss but continues to have some complications from his many medical troubles includes diabetes. She's been having difficulty to the left foot third toe for several days. Despite some outpatient treatment it worsened. He had increasing discomfort increasing swelling to the toe and then ascending erythema on the leg. The leg became quite uncomfortable and consequently he presented to the emergency center and has been admitted for the cellulitis. His admission he high-grade fever with chills. With evidence of possible culture the infectious diseases consultation was requested. Review of Systems admission the patient felt poorly with HEENT:Denies headache or acute visual change. Denies sinus or mouth discomforts. Denies neck stiffness or pain. Denies significant oral cavity pain. Denies difficulty on swallowing. Lungs: Denies significant shortness of breath, cough, sputum production, or hemoptysis. Cardiovascular: Denies significant shortness of breath, chest pain, chest wall pain, orthopnea, dyspnea on exertion, syncope Gastrointestinal:Denies nausea, vomiting, diarrhea, constipation, hematemesis, melena, hematochezia. No no significant change of bowel habit noticed. Musculoskeletal: denies significant myalgias or arthralgias. No new joint swelling. Denies new back pain. Skin: chronic changes to his feet hammertoes ascending redness to the left leg alsonoted Neuro: Denies headache or visual change. Denies any new onset weakness or difficulty with ambulation. Denies falls or seizures. Psychiatric:Denies anxiety or depression. Endocrine: chronic fatigue has had a successful weight loss BMI remains 41 Past Medical History Past Medical History: Diabetes Mellitus, Thyroid Disorder Additional Past Medical History / Comment(s): sepsis with unknown etiology. Pt also c/o non healing ulcer R great toe. cellulitis R great . Other HX: IDDM, 2006 or 2007 sepsis requiring mechanical ventilation, pressure ulcers on ankles in the past, renal failure with dialysis in 2005/2006, neuropathy bilateral legs and feet, hypothyroidism, lower leg edema at times, L leg fracture as child. History of Any Multi-Drug Resistant Organisms: None Reported Past Surgical History: Tonsillectomy Additional Past Surgical History / Comment(s): 2005/2006 tracheostomy, Jesus Manuel catheter in and out, piccline in and out. Past Anesthesia/Blood Transfusion Reactions: No Reported Reaction Additional Past Anesthesia/Blood Transfusion Reaction / Comm: Pt has received blood without reaction in the past. Past Psychological History: Depression Smoking Status: Former smoker Past Alcohol Use History: None Reported Past Drug Use History: None Reported - Past Family History Father History Unknown: Yes Additional Family Medical History / Comment(s): Pt was adopted and does not know any family health hx. Mother History Unknown: Yes Additional Family Medical History / Comment(s): Pt was adopted and does not know any family health hx. Medications and Allergies Home Medications and Allergies Comment(s): Current Medications Acetaminophen (Tylenol Tab) 650 mg PO Q6HR PRN PRN Reason: Mild Pain or Fever > 100.5 Hydrocodone Bitart/Acetaminophen ([place] 10) 1 each PO Q4HR PRN PRN Reason: Pain 1-5 Hydrocodone Bitart/Acetaminophen ([place] 10) 2 each PO Q4HR PRN PRN Reason: Pain 6-10 Last Admin: 09/08/18 20:57 Dose: 2 each Aspirin (Aspirin) 81 mg PO DAILY [facility] Last Admin: 09/08/18 09:46 Dose: 81 mg Atorvastatin Calcium (Lipitor) 20 mg PO HS [facility] Last Admin: 09/08/18 20:53 Dose: 20 mg Calcium Carbonate/Glycine (Tums) 1,000 mg PO Q4HR PRN PRN Reason: Dyspepsia Diphenhydramine HCl (Benadryl) 25 mg PO DAILY PRN PRN Reason: Itching Enoxaparin Sodium (Lovenox) 40 mg SQ DAILY [facility] Last Admin: 09/08/18 09:45 Dose: 40 mg Furosemide (Lasix) 40 mg PO DAILY [facility] Last Admin: 09/08/18 09:46 Dose: 40 mg Gabapentin (Neurontin) 300 mg PO TID [facility] Last Admin: 09/08/18 20:53 Dose: 300 mg Levofloxacin 750 mg/ IV (Solution) 150 mls @ 100 mls/hr IVPB Q24H [facility] Last Admin: 09/08/18 14:13 Dose: 100 mls/hr Levothyroxine Sodium (Synthroid) 200 mcg PO [id number] [facility] Last Admin: 09/08/18 06:46 Dose: 200 mcg Melatonin (Melatonin) 3 mg PO HS PRN PRN Reason: Insomnia Metformin HCl (Glucophage) 1,000 mg PO BID [facility] Last Admin: 09/08/18 20:52 Dose: 1,000 mg Morphine Sulfate (Ms Contin) 30 mg PO Q8H PRN PRN Reason: Pain Last Admin: 09/07/18 16:49 Dose: 30 mg Naloxone HCl (Narcan) 0.2 mg IV Q2M PRN PRN Reason: Opioid Reversal Ondansetron HCl (Zofran) 4 mg IVP Q8HR PRN PRN Reason: Nausea And Vomiting Silver Sulfadiazine (Silvadene Cream) 1 applic TOPICAL DAILY [facility] Venlafaxine HCl (Effexor) 25 mg PO HS [facility] Last Admin: 09/08/18 20:53 Dose: 25 mg Home Medications Medication Instructions Recorded Confirmed Type Aspirin 81 mg PO DAILY 10/25/15 09/06/18 History Furosemide [Lasix] 40 mg PO DAILY 10/25/15 09/06/18 History Hydrocodone/Acetaminophen [[place] 1 - 2 tab PO Q4H PRN 10/25/15 09/06/18 History 10-325] Levothyroxine Sodium [Synthroid] 200 mcg PO MOTUWETHFR 10/25/15 09/06/18 History Simvastatin [Zocor] 40 mg PO HS 10/25/15 09/06/18 History metFORMIN HCL 1,000 mg PO BID 10/25/15 09/06/18 History Ergocalciferol (Vitamin D2) 50,000 unit PO Q7D 09/06/18 09/06/18 History [Vitamin D2] Levothyroxine Sodium [Synthroid] 400 mcg PO SUSA 09/06/18 09/06/18 History Morphine Sulfate ER [Ms Contin] 30 mg PO TID PRN 09/06/18 09/06/18 History Potassium Chloride ER [K-Dur 20] 20 meq PO BID 09/06/18 09/06/18 History Sildenafil Citrate [Sildenafil] 20 - 100 mg PO DAILY PRN 09/06/18 09/06/18 History Testosterone Cypionate 200 mg IM Q7D 09/06/18 09/06/18 History [Depo-Testosterone] Venlafaxine HCl [Effexor XR] 75 mg PO DAILY 09/06/18 09/06/18 History Allergies Allergy/AdvReac Type Severity Reaction Status Date / Time latex Allergy Unknown Verified 09/06/18 09:06 Physical Exam Vitals: Vital Signs Temp Pulse Resp BP Pulse Ox 09/08/18 16:28 65 16 09/08/18 14:46 98.1 F 65 16 104/69 95 09/08/18 12:16 97.0 F L 65 17 125/78 97 09/08/18 08:00 63 17 09/08/18 07:45 63 09/08/18 07:40 98.1 F 63 17 108/58 97 09/08/18 06:34 98.3 F 61 16 107/47 95 Intake and Output 09/08/18 09/08/18 09/09/18 14:59 22:59 06:59 Intake Total 240 150 Balance 240 150 Intake: Intake, IV Titration 150 Amount Levofloxacin 750Mg-D5w 100 Pmx 750 mg In Dextrose/ Water 1 150ml.bag @ 100 mls/hr IVPB Q24H [facility] Rx#: [id number] cefTRIAXone 1,000 mg In 50 Sodium Chloride 0.9% 50 ml @ 100 mls/hr IVPB Q24HR [facility] Rx#:[id number] Oral 240 Other: Voiding Method Toilet Toilet # Voids 2 1 Weight 146.057 kg 146.057 kg 58-year-old male with obesity prolix more comfortable at admission a HEENT: Anicteric conjunctiva are pink and moist nasal mucosa grossly intact without significant lesions, there is no thrush.the prior tracheostomy scar is well-healed Neck: The neck is supple without significant lymphadenopathy or thyromegaly. Lungs: Good bilateral air entry without significant crackles or wheezing. There is no significant bronchial sounds. There is no egophony or dullness. Heart: Regular rate and rhythm with an audible S1-S2, no S3 no S4. There is no significant murmur click or rub, PMI was nondisplaced. Abdomen:obese Positive bowel sounds soft and nontender without palpable masses or organomegaly. There was no guarding or rebound. Extremities: The upper extremities without lesions. IV site is intact. Lower extremities show evidence is on the chronic changes. Rarely has evidence of chronic skin changes possibly of a rash. Left lower extremities shows evidence of the deformity to the left foot third toe there is some swelling appears have a recent ulceration that is not draining at this time. The toe still swollen. There is erythema on the third toe does ascend the leg. There is a palpable lymph node into the left inguinal area. No other abnormal lymph nodes are noted Neuro: Awake alert oriented to person place and time. There are no acute new gross focal sensory motor deficits. Results CBC & Chem 7: 09/07/18 07:42 09/08/18 08:22 Labs: Abnormal Lab Results - Last 24 Hours (Table) 09/08/18 Range/Units 08:22 Chloride 108 H (98-107) mmol/L Creatinine 1.27 H (0.66-1.25) mg/dL Glucose 105 H (74-99) mg/dL Microbiology - Last 24 Hours (Table) 09/06/18 16:59 Blood Culture - Preliminary Blood No Growth after 48 hours 09/05/18 19:05 Blood Culture Gram Stain - Final Blood Blood Culture - Final Strep agalactiae - (group b) Laboratory Results WBC 5.6 k/uL (3.8-10.6) 09/07/18 07:42 RBC 3.90 m/uL (4.30-5.90) L 09/07/18 07:42 Hgb 12.1 gm/dL (13.0-17.5) L 09/07/18 07:42 Hct 36.8 % (39.0-53.0) L 09/07/18 07:42 MCV 94.5 fL (80.0-100.0) 09/07/18 07:42 MCH 31.1 pg (25.0-35.0) 09/07/18 07:42 MCHC 32.9 g/dL (31.0-37.0) 09/07/18 07:42 RDW 13.2 % (11.5-15.5) 09/07/18 07:42 Plt Count 152 k/uL (150-450) 09/07/18 07:42 Neutrophils % 71 % 09/07/18 07:42 Lymphocytes % 14 % 09/07/18 07:42 Monocytes % 7 % 09/07/18 07:42 Eosinophils % 4 % 09/07/18 07:42 Basophils % 0 % 09/07/18 07:42 Neutrophils # 4.0 k/uL (1.3-7.7) 09/07/18 07:42 Lymphocytes # 0.8 k/uL (1.0-4.8) L 09/07/18 07:42 Monocytes # 0.4 k/uL (0-1.0) 09/07/18 07:42 Eosinophils # 0.2 k/uL (0-0.7) 11 07:42 Basophils # 0.0 k/uL (0-0.2) 11 07:42 ESR 62 mm/hr (0-15) H 09/07/18 07:42 Sodium 139 mmol/L (137-145) 09/08/18 08:22 Potassium 3.9 mmol/L (3.5-5.1) 09/08/18 08:22 Chloride 108 mmol/L (98-107) H 09/08/18 08:22 Carbon Dioxide 23 mmol/L (22-30) 09/08/18 08:22 Anion Gap 8 mmol/L 09/08/18 08:22 BUN 19 mg/dL (9-20) 09/08/18 08:22 Creatinine 1.27 mg/dL (0.66-1.25) H 09/08/18 08:22 Est GFR (CKD-EPI)AfAm 72 (>60 ml/min/1.73 sqM) 09/08/18 08:22 Est GFR (CKD-EPI)NonAf 62 (>60 ml/min/1.73 sqM) 09/08/18 08:22 Glucose 105 mg/dL (74-99) H 09/08/18 08:22 POC Glucose (mg/dL) 95 mg/dL (75-99) 09/08/18 07:22 POC Glu Tile Sprayer ID Traci Wu 09/08/18 07:[address] Glu mg/dL 111 09/05/18 19:05 Hemoglobin A1c 5.5 % (4.0-6.0) 09/05/18 19:05 Plasma Lactic Acid Khurram 1.3 mmol/L (0.7-2.0) 09/05/18 19:05 Calcium 9.2 mg/dL (8.4-10.2) 09/08/18 08:22 Total Bilirubin 0.9 mg/dL (0.2-1.3) 09/05/18 19:05 AST 67 U/L (17-59) H 09/05/18 19:05 ALT 51 U/L (21-72) 09/05/18 19:05 Alkaline Phosphatase 87 U/L (38-126) 09/05/18 19:05 C-Reactive Protein 85.3 mg/L (<10.0) H 09/07/18 07:42 Total Protein 7.5 g/dL (6.3-8.2) 09/05/18 19:05 Albumin 4.2 g/dL (3.5-5.0) 09/05/18 19:05 Urine Color Light Yellow 09/05/18 20:10 Urine Appearance Clear (Clear) 09/05/18 20:10 Urine pH 7.0 (5.0-8.0) 09/05/18 20:10 Ur Specific [place] 1.008 (1.001-1.035) 09/05/18 20:10 Urine Protein Negative (Negative) 09/05/18 20:10 Urine Glucose (UA) Negative (Negative) 09/05/18 20:10 Urine Ketones Negative (Negative) 09/05/18 20:10 Urine Blood Negative (Negative) 09/05/18 20:10 Urine Nitrite Negative (Negative) 09/05/18 20:10 Urine Bilirubin Negative (Negative) 09/05/18 20:10 Urine Urobilinogen <2.0 mg/dL (<2.0) 09/05/18 20:10 Ur Leukocyte Esterase Negative (Negative) 09/05/18 20:10 Vancomycin Trough 12.5 ug/mL 09/08/18 08:22 Influenza Type A RNA Not Detected (Not Detectd) 09/05/18 19:50 Influenza Type B (PCR) Not Detected (Not Detectd) 09/05/18 19:50 Microbiology 09/06/18 16:59 Blood Blood Culture - Preliminary No Growth after 48 hours 09/05/18 19:05 Blood Blood Culture Gram Stain - Final 09/05/18 19:05 Blood Blood Culture - Final Strep agalactiae - (group b) 09/05/18 20:10 Urine,Voided Urine Culture - Final 09/05/18 19:05 Blood Blood Culture - Final Assessment and Plan (1) Morbid obesity with BMI of 40.0-44.9, adult Current Visit: Yes Status: Acute Code(s): E66.01 - MORBID (SEVERE) OBESITY DUE TO EXCESS CALORIES; Z68.41 - BODY MASS INDEX (BMI) 40.0-44.9, ADULT SNOMED Code(s): 313743304 (2) Cellulitis of left leg Current Visit: Yes Status: Acute Code(s): L03.116 - CELLULITIS OF LEFT LOWER LIMB SNOMED Code(s): 520522621 (3) Gram-positive bacteremia Narrative/Plan: 58-year-old male presents to hospital with difficulties with his left leg with ulceration that is healed to the third toe of left foot. There is still some swelling and there was ascending erythema and lymphadenopathy to the left groin. The patient seems to be improving and that his high-grade fever has improved his chills have improved she's feeling better and eating well. For now continue with supportive care. Is on antibiotic therapy and is improving. Blood culture is positive await the final identification. Does appear to follow blood cultures negative so far. Bone scan requested to evaluate the possibility of osteomyelitis to the left foot third toe Local wound care was facility will be applied to the left leg with swelling and erythema Elevation limit rest is helpful EnSure he has adequate protein intake Current Visit: Yes Status: Acute Code(s): R78.81 - BACTEREMIA SNOMED Code( s): 932179072989
[2018-09-09] MEDS: HYDROcodone/APAP 10-325MG 1 EACH TAB PO PRN ×2 (02:53→18:36)
[2018-09-09] MEDS: LEVOTHYROXINE 100 MCG TAB PO SCH (06:10)
[2018-09-09] MEDS: ASPIRIN 81 MG PO SCH (07:55)
[2018-09-09] MEDS: metFORMIN 500 MG TAB PO SCH ×2 (07:55→21:05)
[2018-09-09] MEDS: GABAPENTIN 300 MG CAP PO SCH ×3 (07:56→21:05)
[2018-09-09] MEDS: FUROSEMIDE 40 MG TAB PO SCH (07:56)
[2018-09-09] MEDS: ENOXAPARIN 40 MG/0.4 ML SYRINGE SQ SCH (07:56)
[2018-09-09 08:34] LABS: Calcium 9.3 mg/dL (8.4-10.2)
[2018-09-09] MEDS: MORPHINE SULFATE ER 30 MG TABLET PO PRN (08:36)
[2018-09-09] MEDS: LEVOFLOXACIN 750MG-D5W PMX 750 MG in DEXTROSE/WATER 1 150ML.BAG IVPB SCH (12:17)
--- NOTE | 2018-09-09 15:32 | NM ---
EXAMINATION TYPE: NM bone 3 phase DATE OF EXAM: 09/09/2018 COMPARISON: Left foot x-ray dated 09-05-2018. HISTORY: History of diabetes with left foot pain, ulcer. Pain worse over second and third digits. Triple phase bone scintigraphy was performed following the injection of 26.3 mCi Tc 99m MDP. Immedia te images and 4 hours post injection images acquired. FINDINGS: Dynamic arterial phase images show increased blood flow to left ankle and foot versus opposite right side. Soft tissue phase images show similar increased radiotracer uptake with more focal prominent radiotra cer uptake near level of the second toe. Delayed phased images show persistent focus of increased uptake near distal aspect of the left latera l toe probable second toe. Acute osteomyelitis at this level thus cannot be excluded, correlate clini evaristo with location of patient soft tissue ulcer. IMPRESSION: As above.
--- NOTE | 2018-09-09 17:38 | P.PN ---
Subjective Progress Note Date: 09/09/18 Principal diagnosis: Left lower extremity cellulitis Patient seen and examined. No acute events overnight. Minimal changes in erythema of the left lower extremity. Outlined again today after showering. Patient denies fever or chills. Patient for bone scan today. Objective - Vital Signs Vital signs: Vital Signs Temp 97.9 F 09/09/18 15:00 Pulse 61 09/09/18 15:00 Resp 18 09/09/18 16:00 BP 113/65 09/09/18 15:00 Pulse Ox 98 09/09/18 15:00 Intake & Output 09/08/18 09/09/18 09/09/18 18:59 06:59 18:59 Intake Total 240 1350 Balance 240 1350 Weight 146.057 kg Intake: Intake, IV Titration 1350 Amount Levofloxacin 750Mg-D5w 100 Pmx 750 mg In Dextrose/ Water 1 150ml.bag @ 100 mls/hr IVPB Q24H [facility] Rx#: [id number] Sodium Chloride 0.45% 1, 1200 000 ml @ 150 mls/hr IV . Q6H40M [facility] Rx#:[id number] cefTRIAXone 1,000 mg In 50 Sodium Chloride 0.9% 50 ml @ 100 mls/hr IVPB Q24HR [facility] Rx#:[id number] Oral 240 Other: Voiding Method Toilet Toilet # Voids 1 2 - Exam General: [non toxic], [no distress], [appears at stated age] Derm: [warm], [dry], [generalized maculopapular rash of the inner thighs.] Head: [atraumatic], [normocephalic], [symmetric] Eyes: [EOMI], [no lid lag], [anicteric sclera] Mouth: [no lip lesion], [mucus membranes moist] Cardiovascular: [S1S2 reg], [no murmur], [positive DP pulse bilateral], Lungs: [CTA bilateral], [no rhonchi, no rales] , [no accessory muscle use] Abdominal: [soft], [ nontender to palpation], [obese], [no appreciable organomegaly] Ext: [erythema extending from the left third toe to the midshin area with minimal improvement], [1+ edema in the left lower extremity], [no contractures] Neuro: [no focal neuro deficits] Psych: [Alert], [oriented], [appropriate affect] - Labs CBC & Chem 7: 09/07/18 07:42 09/09/18 07:49 Labs: Abnormal Lab Results - Last 24 Hours (Table) 09/09/18 Range/Units 07:49 Creatinine 1.31 H (0.66-1.25) mg/dL Microbiology - Last 24 Hours (Table) 09/05/18 19:05 Blood Culture Gram Stain - Final Blood Blood Culture - Final Strep agalactiae - (group b) 09/06/18 16:59 Blood Culture - Preliminary Blood No Growth after 48 hours Assessment and Plan Assessment: Assessment and Plan 1. LLE cellulitis: Tmax 100.5F on 09/06 at 3PM but no leukocytosis. Lactic acid 1.3. Low concern for sepsis. Severe onychomycosis likely source of entry. Foot XR is negative for osteomyelitis. Bone scan consistent with OM of the 2nd toe LLE. Tylenol 650 mg PO Q6 PRN for fever. Continue Levofloxacin 750 mg IV QD. BCx + for Group B strep. Repeat BCx prelim negative after 48H. LLE Duplex negative for DVT. ESR 62 and CRP 85.3, elevated. Continue NS 75 cc/h. FU repeat BCx (final). PT cleared. FU ID consult 2. MARYBEL: Cr 1.27 to 1.31. Likely secondary to IV Abx. Continue NS at 75 cc/h. Avoid nephrotoxins. ULytes and kidney US if not improved. Daily BMP. 3. DM: POC glucose 97. A1c 5.5. Continue Metformin 1000 mg PO BID. Start ISS. Accuchecks TID. Diabetic diet. Hypoglycemic precautions. 4. Peripheral neuropathy: Pain control with Gabapentin 300 mg PO TID, Effexor 25 mg PO QHS, MS Contin 30 mg PO TID PRN, [place] 10 1-2 tab PO Q6H PRN. 5. Hypothyroidism: Continue Synthroid 200 mcg PO MotoFri. 6. ASCVD risk: Continue ASA 81 mg PO QD, Lipitor 20 mg PO QHS. 7. DVT/GI Prophylaxis: Lovenox 40 mg SUBCUT QD. BCx + for group B strep. Continue IV Levaquin. Erythema with minimal improvement from yesterdays to todays exam. Repeat BCx pending. Decision of IV vs. PO Abx deferred to ID.
[2018-09-09] MEDS: SODIUM CHLORIDE 0.9% 1,000 ML IV SCH (19:33)
[2018-09-09] MEDS: VENLAFAXINE HCL 25 MG TAB PO SCH (21:05)
[2018-09-09] MEDS: ATORVASTATIN 20 MG TAB PO SCH (21:05)
[2018-09-10] MEDS: MORPHINE SULFATE ER 30 MG TABLET PO PRN (00:23)
[2018-09-10] MEDS: LEVOTHYROXINE 100 MCG TAB PO SCH (06:42)
[2018-09-10] MEDS: SODIUM CHLORIDE 0.9% 1,000 ML IV SCH (06:43)
[2018-09-10] MEDS: ENOXAPARIN 40 MG/0.4 ML SYRINGE SQ SCH (07:58)
[2018-09-10] MEDS: FUROSEMIDE 40 MG TAB PO SCH (07:59)
[2018-09-10] MEDS: ASPIRIN 81 MG PO SCH (07:59)
[2018-09-10] MEDS: metFORMIN 500 MG TAB PO SCH (07:59)
[2018-09-10] MEDS: GABAPENTIN 300 MG CAP PO SCH ×2 (07:59→16:36)
[2018-09-10] MEDS: HYDROcodone/APAP 10-325MG 1 EACH TAB PO PRN (08:10)
[2018-09-10] MEDS ORDERED: cefTRIAXone 2,000 MG in SODIUM CHLORIDE 0.9% 100 ML IVPB SCH (09:00)
[2018-09-10] MEDS ORDERED: LEVOFLOXACIN 750 MG TAB PO SCH (09:00)
[2018-09-10 10:37] LABS: Calcium 8.9 mg/dL (8.4-10.2); Potassium 3.7 mmol/L (3.5-5.1)
--- NOTE | 2018-09-10 14:22 | P.DS ---
Providers Date of admission: 09/05/18 19:46 Expected date of discharge: 09/10/18 Attending physician: Chiki Infante MD Consults: 09/06/18 16:52 Consult Physician Routine Consulting Provider: Singh Berman Consult Reason/Comments: Bacteremia, cellulitis Do you want consulting provider notified?: Yes Primary care physician: Willam Jones - Discharge Diagnosis(es) (1) Osteomyelitis of toe of left foot Current Visit: Yes Status: Acute (2) Cellulitis of left leg Current Visit: Yes Status: Acute (3) Diabetes Current Visit: Yes Status: Acute (4) Hypothyroidism Current Visit: Yes Status: Acute (5) Neuropathy Current Visit: Yes Status: Acute Hospital Course: 58-year-old male with PMH of DM, morbid obesity, hypothyroidism presents to the ED for fevers and redness of the L middle toe. Patient reports previous incidents of sepsis including a prolonged course that resulted in VDRF. He was found to have a Tmax of 102.7 on 09/05 and admitted for cellultis. with regard to his left lower extremity cellulitis, patient had a T-max of 100.5 Fahrenheit which resolved on 09/06/2018. He had no leukocytosis throughout his admission. His lactic acid was 1.3 within normal limits. He had severe onychomycosis which was thought to be the likely source of entry. Foot x-ray was negative for osteomyelitis. Bone scan was consistent with osteo- myelitis of the second toe of the left lower extremity. Patient's blood culture on 09/05/2018 was positive for strep agalactiae. Repeat blood cultures from 03/2018 were negative after 72 hours growth. He was initially started on vancomycin and ceftriaxone IV, which was later downgraded to Levaquin IV. infectious disease was consulted, Dr. Berman recommended IV antibiotics for 14 days. Patient seen and examined prior to discharge. No acute events overnight. No fever, chills, chest pain, shortness of breath or palpitations. General: [non toxic], [no distress], [appears at stated age] Derm: [warm], [dry], [generalized maculopapular rash of the inner thighs] Head: [atraumatic], [normocephalic], [symmetric] Eyes: [EOMI], [no lid lag], [anicteric sclera] Mouth: [no lip lesion], [mucus membranes moist] Cardiovascular: [S1S2 reg], [no murmur], [positive DP pulse bilateral] Lungs: [CTA bilateral], [no rhonchi, no rales] , [no accessory muscle use] Abdominal: [soft], [ nontender to palpation], [obese], [no appreciable organomegaly] Ext: [erythema extending from the left third toe to the midshin area with improvement], [1+ edema in the left lower extremity], [no contractures] Neuro: [no focal neuro deficits] Psych: [Alert], [oriented], [appropriate affect] Assessment and Plan 1. LLE cellulitis: Tmax 100.5F on 09/06 at 3PM but no leukocytosis. Lactic acid 1.3. Low concern for sepsis. Severe onychomycosis likely source of entry. Foot XR is negative for osteomyelitis. Bone scan consistent with OM of the 2nd toe LLE. Tylenol 650 mg PO Q6 PRN for fever. Continue Levofloxacin 750 mg IV QD. BCx + for Group B strep. Repeat BCx prelim negative after 72H. LLE Duplex negative for DVT. ESR 62 and CRP 85.3, elevated. Continue NS 75 cc/h. PT cleared. ID consulted - recommends IV Abx on DC, patient for PICC line today. FU repeat BCx (final) 2. DM: POC glucose 88. A1c 5.5. Continue Metformin 1000 mg PO BID. Start ISS. Accuchecks TID. Diabetic diet. Hypoglycemic precautions. 3. Peripheral neuropathy: Pain control with Gabapentin 300 mg PO TID, Effexor 25 mg PO QHS, MS Contin 30 mg PO TID PRN, [place] 10 1-2 tab PO Q6H PRN. 4. Hypothyroidism: Continue Synthroid 200 mcg PO MotoFri. 5. ASCVD risk: Continue ASA 81 mg PO QD, Lipitor 20 mg PO QHS. 6. DVT/GI Prophylaxis: Lovenox 40 mg SUBCUT QD. Resolved: MARYBEL BCx + for group B strep. Patient is s/p PICC. Pending insurance acceptance for IV Rocephin at home. Will DC if approved. Rhis complex discharge took greater than 30 minutes. Pertinent Studies: Foot XR Bone scan Venous duplex Patient Condition at Discharge: Good Plan - Discharge Summary New Discharge Prescriptions: New RX: cefTRIAXone [Rocephin] 2,000 mg IVPB Q24HR #40 vial RX: cefTRIAXone [Rocephin] 2,000 mg IVPB Q24HR vial RX: SILVER sulfADIAZINE CREAM [Silvadene Cream] 1 applic TOPICAL DAILY #1 tube Continue RX: metFORMIN HCL 1,000 mg PO BID RX: Hydrocodone/Acetaminophen [[place] 10-325] 1 - 2 tab PO Q4H PRN PRN Reason: Pain RX: Furosemide [Lasix] 40 mg PO DAILY RX: Aspirin 81 mg PO DAILY RX: Simvastatin [Zocor] 40 mg PO HS RX: Levothyroxine Sodium [Synthroid] 200 mcg PO MOTUWETHFR RX: Morphine Sulfate ER [Ms Contin] 30 mg PO TID PRN PRN Reason: Pain RX: Potassium Chloride ER [K-Dur 20] 20 meq PO BID RX: Levothyroxine Sodium [Synthroid] 400 mcg PO SUSA RX: Testosterone Cypionate [Depo-Testosterone] 200 mg IM Q7D RX: Venlafaxine HCl [Effexor XR] 75 mg PO DAILY RX: Ergocalciferol (Vitamin D2) [Vitamin D2] 50,000 unit PO Q7D RX: Sildenafil Citrate [Sildenafil] 20 - 100 mg PO DAILY PRN PRN Reason: ED Discharge Medication List RX: Aspirin 81 mg PO DAILY 10/25/15 [History] RX: Furosemide [Lasix] 40 mg PO DAILY 10/25/15 [History] RX: Hydrocodone/Acetaminophen [[place] 10-325] 1 - 2 tab PO Q4H PRN 10/25/15 [ History] RX: Levothyroxine Sodium [Synthroid] 200 mcg PO MOTUWETHFR 10/25/15 [History] RX: Simvastatin [Zocor] 40 mg PO HS 10/25/15 [History] RX: metFORMIN HCL 1,000 mg PO BID 10/25/15 [History] RX: Ergocalciferol (Vitamin D2) [Vitamin D2] 50,000 unit PO Q7D 09/06/18 [ History] RX: Levothyroxine Sodium [Synthroid] 400 mcg PO SUSA 09/06/18 [History] RX: Morphine Sulfate ER [Ms Contin] 30 mg PO TID PRN 09/06/18 [History] RX: Potassium Chloride ER [K-Dur 20] 20 meq PO BID 09/06/18 [History] RX: Sildenafil Citrate [Sildenafil] 20 - 100 mg PO DAILY PRN 09/06/18 [History] RX: Testosterone Cypionate [Depo-Testosterone] 200 mg IM Q7D 09/06/18 [History] RX: Venlafaxine HCl [Effexor XR] 75 mg PO DAILY 09/06/18 [History] RX: cefTRIAXone [Rocephin] 2,000 mg IVPB Q24HR #40 vial 09/09/18 [Rx] RX: SILVER sulfADIAZINE CREAM [Silvadene Cream] 1 applic TOPICAL DAILY #1 tube 09/10/18 [Rx] RX: cefTRIAXone [Rocephin] 2,000 mg IVPB Q24HR vial 09/10/18 [Rx] Follow up Appointment(s)/Referral(s): Willam Jones MD [Primary Care Provider] - 1-2 days Singh Berman MD [STAFF PHYSICIAN] - 2 Weeks Activity/Diet/Wound Care/Special Instructions: Diet: Diabetic diet. Please follow-up with your primary care provider within 1-2 days of discharge. Please follow-up with Dr. Berman, infectious disease within 2 weeks of discharge. Please take all medications as advised. Discharge Disposition: HOME SELF-CARE
[2018-09-10 15:08] VITALS: BMI 41.3
[2018-09-10 15:49] VITALS: BP 114/60; TEMP 98.3
[2018-09-10 17:25] VITALS: PULSE 70; RESP 16
--- NOTE | 2018-09-15 05:26 | CDI ---
Last Revision, October 2017 Documentation Clarification Form Date: 09/15/2018 5:06:18 AM From: Ashanti Gates Phone: If you have a question about this query, please contact Mirna Ahmadi, Harness Cutter at [phone] between 8am and 5pm. Admit Date: 09/05/2018 7:46:00 PM Patient Name: Khris Garnett Visit Number: [id number] Discharge Date:09/10/18 ATTENTION: The Clinical Documentation Specialists (CDI) and [facility] Coding Staff appreciate your assistance in clarifying documentation. Please respond to the clarification below the line at the bottom and electronically sign. The CDI & [facility] Coding staff will review the response and follow-up if needed. Please note: Queries are made part of the Legal Health Record. If you have any questions, please contact the author of this message via ITS. Bob Simpson MD Osteomyelitis of 2nd toe LLE in DCS. Patient also has documented non healing ulcer of toe on right foot with a history of diabetes. Please clarify if there is a link betweein osteomyelitis left toe and ulcer right toe to DM. History/Risk Factors: Diabetic PN, cellulitis LLE, non healing ulcer RT toe, + bone scan for osteomyelitis LT toe. Bone Scan: triple phase bone scan Acute osteomyelitis Treatment: IV Rocephin In your professional opinion, please specify the following: Associated condition (if applicable): Diabetic Major osseous defect (specify site) Other (please specify): OM was caused from a combination of diabetic PN and severe onychomycosis MTDD
== END 2018-09-10 19:22 | disposition home or self-care (01) | DRG 638 ==
LOC: EC 18:33 → 4MS4W 19:46
PROVIDERS: ADMIT Hospitalist; ATTEND Hospitalist
DX: E11.69 Type 2 diabetes mellitus with other specified complication (principal); M86.172 Other acute osteomyelitis, left ankle and foot; R78.81 Bacteremia; L03.116 Cellulitis of left lower limb; Z68.41 Body mass index [BMI] 40.0-44.9, adult; N17.9 Acute kidney failure, unspecified; B35.1 Tinea unguium; B96.89 Other specified bacterial agents as the cause of diseases classified elsewhere; E03.9 Hypothyroidism, unspecified; E11.40 Type 2 diabetes mellitus with diabetic neuropathy, unspecified; E66.01 Morbid (severe) obesity due to excess calories; F32.9 Major depressive disorder, single episode, unspecified; L03.031 Cellulitis of right toe; L97.519 Non-pressure chronic ulcer of other part of right foot with unspecified severity; Z87.09 Personal history of other diseases of the respiratory system; Z79.4 Long term (current) use of insulin; Z79.82 Long term (current) use of aspirin; Z87.891 Personal history of nicotine dependence; R53.82 Chronic fatigue, unspecified; Z86.19 Personal history of other infectious and parasitic diseases; T36.8X5A Adverse effect of other systemic antibiotics, initial encounter; Z79.890 Hormone replacement therapy; Z91.040 Latex allergy status
CPT/HCPCS: 36415; 36569; 71046; 76937; 78315; 80048; 80053; 80202; 81003; 83036; 83605; 85025; 85652; 86140; 87040; 87077; 87086; 87186; 87502; 93005; 96365; 96367; 99285

== ENCOUNTER → 2018-10-13 | Outpatient (CLI) | payer OTHER ==
--- NOTE | 2018-10-14 08:45 | ECHOF ---
Referral Reason:I38 Endocarditis, valve unspecified MEASUREMENTS -------- HEIGHT: 182.9 cm WEIGHT: 142.9 kg BP: RVIDd: 3.0 cm (< 3.3) IVSd: 1.2 cm (0.6 - 1.1) LVIDd: 5.6 cm (3.9 - 5.3) LVPWd: 1.2 cm (0.6 - 1.1) IVSs: 1.4 cm LVIDs: 4.3 cm LVPWs: 1.4 cm LA Diam: 4.4 cm (2.7 - 3.8) LAESV Index (A-L): 46.36 ml/m Ao Diam: 3.0 cm (2.0 - 3.7) AV Cusp: 1.7 cm (1.5 - 2.6) LA Diam: 3.8 cm (2.7 - 3.8) MV EXCURSION: 16.486 mm (> 18.000) MV EF SLOPE: 111 mm/s (70 - 150) EPSS: 0.9 cm MV E James: 0.98 m/s MV DecT: 191 ms MV A James: 0.71 m/s MV E/A Ratio: 1.37 RAP: 5.00 mmHg RVSP: 32.89 mmHg FINDINGS -------- Sinus rhythm. This was a technically adequate study. Morbid Obesity The left ventricular size is normal. Left ventricular wall thickness is normal. Overall left vent ricular systolic function is normal with, an EF between 55 - 60 %. The right ventricle is normal in size. LA is moderately dilated 34-39 ml/m2 The right atrial size is normal. The aortic valve is trileaflet, and appears structurally normal. No aortic stenosis or regurgitation. Mild mitral annular calcification present. Bwibyaua-yk-hcfznz mitral regurgitation is present. Ca nnot exclude vegeation on he PMVL. Mild tricuspid regurgitation present. There is no evidence of pulmonary hypertension. The right v entricular systolic pressure, as measured by Doppler, is 32.89mmHg. Trace/mild (physiologic) pulmonic regurgitation. The aortic root size is normal. There is no pericardial effusion. CONCLUSIONS -------- 1. Sinus rhythm. 2. Morbid Obesity 3. The left ventricular size is normal. 4. Left ventricular wall thickness is normal. 5. Overall left ventricular systolic function is normal with, an EF between 55 - 60 %. 6. The right ventricle is normal in size. 7. LA is moderately dilated 34-39 ml/m2 8. The aortic valve is trileaflet, and appears structurally normal. No aortic stenosis or regurgitati on. 9. Mild mitral annular calcification present. 10. Xryhhlxb-ek-rvemay mitral regurgitation is present. 11. Cannot exclude vegeation on he PMVL. 12. Mild tricuspid regurgitation present. 13. There is no evidence of pulmonary hypertension. 14. Trace/mild (physiologic) pulmonic regurgitation. 15. The aortic root size is normal. 16. There is no pericardial effusion. PUBLIC SPEAKING COACH: Perla Moreno RDCS
== END | disposition home or self-care (01) ==
LOC: RADECHMAIN 13:19
PROVIDERS: ATTEND Internal Medicine Infectious Disease
DX: I08.1 Rheumatic disorders of both mitral and tricuspid valves (principal); E66.01 Morbid (severe) obesity due to excess calories
CPT/HCPCS: 93306

== ENCOUNTER → 2018-12-13 | Day surgery (SDC) | payer OTHER ==
[2018-12-10 13:44] VITALS: BMI 42.3
[~2018-12-13] MED LIST: MIDAZOLAM 2 MG/2 ML VIAL IVP ONE; SODIUM CHLORIDE 0.9% 500 ML 500 ML IV ONE; fentaNYL (PF) 50 MCG/ML 2 ML AMP IVP ONE; fentaNYL (PF) 50 MCG/ML 2 ML AMP ONE
[2018-12-13 11:34] VITALS: RESP 18; TEMP 98.2
[2018-12-13 11:47] LABS: Glucose,Whole Blood 133 mg/dL (75-99)
[2018-12-13] MEDS: BENZOCAINE SPRAY 1 CAN MUCOUS MEM ONE ×2 (12:40→12:45)
[2018-12-13] MEDS: MIDAZOLAM 2 MG/2 ML VIAL IVP ONE ×2 (12:46→12:48)
[2018-12-13 13:18] VITALS: BP 152/89; PULSE 55
--- NOTE | 2018-12-13 13:58 | ECHOT ---
TRANSESOPHAGEAL ECHOCARDIOGRAM DATE OF SERVICE: 12/13/2018 PERFORMING PHYSICIAN: Juwan Duckworth MD, Practical Nursing Teacher. PROCEDURE PERFORMED: Transesophageal echocardiogram. INDICATION: This is a pleasant 58-year-old gentleman with a history of endocarditis in 2007, who recently was seen by Dr. Berman who discovered a new heart murmur and because of that an echocardiogram was performed. This service echocardiogram revealed moderate to severe MR with possible vegetation on the mitral valve. Because of that, a transesophageal echocardiogram was advised. COMPLICATION: None. LEVEL OF SEDATION: Moderate with sedation length of 12 minutes. PROCEDURE DESCRIPTION: After obtaining an informed consent, explaining the procedure, benefits, risks, complications and alternatives, the patient was brought to the transesophageal echocardiogram suite. A pulse oximetry and heart rate monitors were attached to the patient prior to the procedure. The patient's throat was sprayed using lidocaine locally. Following that, the patient was turned into left lateral position. A bite guard was placed and the patient was then sedated with the above doses of Versed and fentanyl in divided doses. Following that, the transesophageal echocardiogram probe was advanced through the bite guard into the mid esophagus where 2-D echocardiogram images as well as color Doppler images of various cardiac structures were obtained. We evaluated the interatrial septum using 2-D echocardiogram, color Doppler, and contrast study. The procedure was completed. There were no complications. FINDINGS: The left ventricular dimension and systolic function appeared to be within normal limits. The ejection fraction appeared to be in the range of 55% to 60%. The right ventricle appeared to be of normal size and function. The left atrium appeared to be within normal limits for dimension. The aortic valve is trileaflet valve without stenosis or regurgitation. The mitral valve there was a small vegetation located on the upstream side of the posterior mitral leaflet consistent with vegetation. Likely to be an old vegetation. There was moderate MR with anteriorly directed jet. The leaflet themselves are intact and they are not perforated. The tricuspid valve and pulmonic valve appear to be within normal limits. The left atrial appendage appeared to be normal without any evidence of thrombus. The interatrial septum appeared to be intact as well. CONCLUSION: 1. Small vegetation located on the upstream side of the posterior mitral leaflet with moderate mitral regurgitation only. 2. Normal left ventricular dimension and systolic function. 3. Normal cardiac chamber sizes. 4. Trileaflet aortic valve without stenosis or regurgitation. 5. Normal left atrial appendage without any evidence of thrombus. 6. Intact interatrial septum without any evidence of shunt. 7. Normal aortic root dimension. 8. No evidence of pericardial effusion. POSTPROCEDURE MANAGEMENT: 1. Maximize medical treatment. 2. Possibly repeat the transesophageal echocardiogram IN about 6 to 8 weeks. 3. MMODL / IJN: [id number] /
== END | disposition home or self-care (01) ==
LOC: CATHCVL 11:12
PROVIDERS: ATTEND Internal Medicine Interventional Cardiology
DX: I34.0 Nonrheumatic mitral (valve) insufficiency (principal); E11.9 Type 2 diabetes mellitus without complications; E78.5 Hyperlipidemia, unspecified; I10 Essential (primary) hypertension; Z72.0 Tobacco use; Z79.890 Hormone replacement therapy; Z79.82 Long term (current) use of aspirin; Z79.899 Other long term (current) drug therapy; G47.33 Obstructive sleep apnea (adult) (pediatric); Z91.040 Latex allergy status; Z79.84 Long term (current) use of oral hypoglycemic drugs
CPT/HCPCS: 93312; 93325; J2250; J3010; 93320

== ENCOUNTER → 2019-01-10 | Outpatient (CLI) | payer OTHER ==
[2019-01-10 17:18] LABS: HGB 13.3 gm/dL (13.0-17.5); MCV 91.3 fL (80.0-100.0); Mean Platelet Volume 6.8; Platelet Count 166 k/uL (150-450); RBC 4.28 m/uL (4.30-5.90); RDW 14.5 % (11.5-15.5); WBC 5.2 k/uL (3.8-10.6)
[2019-01-11 01:25] LABS: Hemoglobin A1C 5.5 % (4.0-6.0)
[2019-01-11 02:06] LABS: Albumin 4.3 g/dL (3.80-4.90); Albumin/Globulin Ratio 1.59 (1.60-3.17); Anion Gap 9.6 mmol/L (4.00-12.00); Calcium 9.6 mg/dL (8.7-10.3); Carbon Dioxide 24.4 mmol/L (21.6-31.8); Globulin 2.7 g/dL (1.6-3.3); LDL Cholesterol,Calculated 73.6 mg/dL (0.0-131.0); Magnesium 1.8 mg/dL (1.5-2.4); Potassium 4.2 mmol/L (3.5-5.5); Total Bilirubin 0.6 mg/dL (0.3-1.2); VLDL Calculation 17.4 mg/dL (5.00-40.00)
[2019-01-11 02:27] LABS: Iron Saturation 14.79 (15.00-50.00)
== END | disposition home or self-care (01) ==
LOC: LABWHC1 16:11
PROVIDERS: ATTEND Nurse Practitioner Adult Health
DX: R25.1 Tremor, unspecified (principal); M15.0 Primary generalized (osteo)arthritis; E55.9 Vitamin D deficiency, unspecified; E29.1 Testicular hypofunction; E11.42 Type 2 diabetes mellitus with diabetic polyneuropathy; E03.9 Hypothyroidism, unspecified; E66.01 Morbid (severe) obesity due to excess calories
CPT/HCPCS: 36415; 80053; 80061; 82043; 82570; 82607; 83036; 83540; 83550; 83735; 84402; 84403; 84439; 84443; 85027

== ENCOUNTER 2019-02-11 05:58 | Day surgery (SDC) | payer OTHER ==
[2019-02-08 15:11] VITALS: BMI 42.3
[2019-02-11] MEDS ORDERED: SODIUM CHLORIDE 0.9% 500 ML 500 ML IV ONE (06:57)
[2019-02-11 07:00] VITALS: TEMP 99.2
[2019-02-11] MEDS ORDERED: fentaNYL (PF) 50 MCG/ML 2 ML AMP ONE (07:05)
[2019-02-11 07:11] LABS: Glucose,Whole Blood 117 mg/dL (75-99)
[2019-02-11] MEDS ORDERED: BENZOCAINE SPRAY 1 CAN MUCOUS MEM ONE (07:41)
[2019-02-11] MEDS: BENZOCAINE SPRAY 1 CAN MUCOUS MEM ONE ×2 (07:41→07:57)
[2019-02-11] MEDS ORDERED: fentaNYL (PF) 50 MCG/ML 2 ML AMP IV ONE ×2 (07:42→07:57)
[2019-02-11] MEDS ORDERED: MIDAZOLAM 2 MG/2 ML VIAL IV ONE (07:42)
[2019-02-11] MEDS: fentaNYL (PF) 50 MCG/ML 2 ML AMP IV ONE ×2 (07:57→08:03)
[2019-02-11] MEDS: MIDAZOLAM 2 MG/2 ML VIAL IV ONE ×2 (07:57→08:02)
[2019-02-11 09:08] VITALS: PULSE 70; RESP 16
[2019-02-11 09:22] VITALS: BP 118/72
--- NOTE | 2019-02-11 10:53 | ECHOT ---
TRANSESOPHAGEAL ECHOCARDIOGRAM DATE OF SERVICE: February 11, 2019 PERFORMING PHYSICIAN: Juwan Duckworth MD, burr bench operator. PROCEDURE PERFORMED: Transesophageal echocardiogram. INDICATION: This is a pleasant 58-year-old gentleman who was diagnosed in the past with infective endocarditis and he was found to have a vegetation on the posterior mitral leaflet. He was on antibiotics for at least 6 weeks. He continues to follow up with Dr. Berman. The TORSTEN is to assess the mitral valve again. At that point, he was found to have moderate mitral regurgitation. COMPLICATION: None. LEVEL OF SEDATION: Moderate with sedation length of 16 minutes. PROCEDURE DESCRIPTION: After obtaining an informed consent, explaining the procedure, benefits, risks, complications and alternatives, the patient was brought to the transesophageal echocardiogram suite. A pulse oximetry and heart rate monitors were attached to the patient prior to the procedure. The patient's throat was sprayed using lidocaine locally. Following that, the patient was turned into left lateral position. A bite guard was placed and the patient was then sedated with the above doses of Versed and fentanyl in divided doses. Following that, the transesophageal echocardiogram probe was advanced through the bite guard into the mid esophagus where 2-D echocardiogram images as well as color Doppler images of various cardiac structures were obtained. We evaluated the interatrial septum using 2-D echocardiogram, color Doppler, and contrast study. The procedure was completed. There were no complications. FINDINGS: The left ventricular dimension and systolic function appeared to be within normal limits. The ejection fraction appeared to be in the range of 60% to 65%. Right ventricle appeared to be of normal size and function. The left atrium and right atrium are mildly dilated. The left atrial appendage appeared to be free from any thrombus. The interatrial septum appeared to be intact. The aortic valve appeared to be trileaflet valve without stenosis or regurgitation. The mitral valve appeared to be free from any vegetation. There was a vegetation on the posterior mitral leaflet, but seems to be healed. There was severe mitral regurgitation identified with anteriorly directed jet. I did document that by color-flow Doppler as well as by reversal flow in the pulmonary vein. The tricuspid valve appeared to be also severely regurgitant. Pulmonic valve appeared to be structurally normal. CONCLUSION: 1. No evidence of infective endocarditis at this point. 2. The vegetation on the posterior mitral leaflet is completely resolved. 3. Severe mitral regurgitation with anteriorly directed jet. The mitral regurgitation was documented by color-flow Doppler as well as by reversal flow in the pulmonary vein. 4. Severe tricuspid regurgitation was identified as well. 5. Trileaflet aortic valve without stenosis or regurgitation. 6. Normal pulmonic valve without any evidence of vegetation. 7. Normal left ventricular dimension and systolic function with ejection fraction of 60% to 65%. 8. Intact interatrial septum without any evidence of shunt. 9. Normal left atrial appendage. POSTPROCEDURE MANAGEMENT: The patient needs to have a heart catheterization to assess the anatomy of his coronaries before he will be sent to mitral valve repair/replacement along with tricuspid valve repair. MMODL / IJN: [id number] /
== END 2019-02-11 09:23 | disposition home or self-care (01) ==
LOC: CATHCVL 05:58
PROVIDERS: ATTEND Internal Medicine Interventional Cardiology
DX: I08.1 Rheumatic disorders of both mitral and tricuspid valves (principal); E11.51 Type 2 diabetes mellitus with diabetic peripheral angiopathy without gangrene; E11.621 Type 2 diabetes mellitus with foot ulcer; L97.529 Non-pressure chronic ulcer of other part of left foot with unspecified severity; L97.519 Non-pressure chronic ulcer of other part of right foot with unspecified severity; E78.5 Hyperlipidemia, unspecified; E66.01 Morbid (severe) obesity due to excess calories; I27.20 Pulmonary hypertension, unspecified; G47.33 Obstructive sleep apnea (adult) (pediatric); Z91.040 Latex allergy status; Z79.82 Long term (current) use of aspirin; Z79.84 Long term (current) use of oral hypoglycemic drugs; Z72.0 Tobacco use; Z79.890 Hormone replacement therapy; Z79.899 Other long term (current) drug therapy; Z68.41 Body mass index [BMI] 40.0-44.9, adult; Z86.79 Personal history of other diseases of the circulatory system
CPT/HCPCS: 93312; 93325; J2250; J3010; 93320

== ENCOUNTER → 2019-03-18 | Outpatient (CLI) | payer OTHER ==
[2019-03-18 16:06] LABS: HCT 39.4 % (39.0-53.0); HGB 12.7 gm/dL (13.0-17.5); MCH 30.4 pg (25.0-35.0); MCHC 32.2 g/dL (31.0-37.0); MCV 94.6 fL (80.0-100.0); Mean Platelet Volume 6.4; Platelet Count 151 k/uL (150-450); RBC 4.17 m/uL (4.30-5.90); RDW 14.1 % (11.5-15.5); WBC 4.9 k/uL (3.8-10.6)
[2019-03-18 16:14] LABS: Potassium 3.9 mmol/L (3.5-5.1)
== END | disposition home or self-care (01) ==
LOC: LABPAT 15:34
PROVIDERS: ATTEND Internal Medicine Interventional Cardiology
DX: Z01.812 Encounter for preprocedural laboratory examination (principal)
CPT/HCPCS: 36415; 80051; 82565; 84520; 85027

== ENCOUNTER 2019-03-22 06:40 | Day surgery (SDC) | payer OTHER ==
[2019-03-22] MEDS ORDERED: ALPRAZolam 0.5 MG TAB ONE (07:08)
[2019-03-22 07:16] VITALS: TEMP 98.4
[2019-03-22] MEDS ORDERED: SODIUM CHLORIDE 0.9% 1,000 ML IV ONE (07:22)
[2019-03-22 07:26] LABS: Glucose,Whole Blood 99 mg/dL (75-99)
[2019-03-22] MEDS ORDERED: LIDOCAINE 1% INJ 10MG/ML (20 ML MDV) ONE (08:01)
[2019-03-22] MEDS ORDERED: HEPARIN SODIUM 1,000 UN/ML (10ML VL) ONE (08:02)
[2019-03-22] MEDS ORDERED: VERAPAMIL 2.5 MG/ML 2 ML AMP ONE (08:02)
[2019-03-22] MEDS ORDERED: MIDAZOLAM (PF) 2 MG/2 ML VIAL IVP ONE ×2 (08:10→08:18)
[2019-03-22] MEDS ORDERED: VERAPAMIL SYRINGE (5 MG/10 ML) INTRAARTER ONE ×2 (08:15→08:24)
[2019-03-22] MEDS ORDERED: LIDOCAINE 1% INJ 10MG/ML (20 ML MDV) SQ ONE (08:15)
[2019-03-22] MEDS ORDERED: HEPARIN SODIUM 1,000 UN/ML (10ML VL) IV ONE (08:16)
[2019-03-22] MEDS ORDERED: IOPAMIDOL-370 125ML BTL INJ ONE (08:25)
[2019-03-22] MEDS ORDERED: RX INFO: IV CONTRAST WAS GIVEN 1 EACH MISC MISCELLANE PRN (08:32)
[2019-03-22] MEDS ORDERED: SODIUM CHLORIDE 0.9% 1,000 ML IV SCH (08:45)
--- NOTE | 2019-03-22 09:00 | CC ---
CARDIAC CATHETERIZATION REPORT DATE OF SERVICE: March 22, 2019 PERFORMING PHYSICIAN: Juwan Duckworth MD, low heel builder. PROCEDURE PERFORMED: 1. Selective right and left coronary angiogram. 2. Left heart catheterization. INDICATION: This is a pleasant 58-year-old gentleman who was diagnosed recently with severe mitral regurgitation and severe tricuspid regurgitation after history of infective endocarditis treated with antibiotic with resolving of all vegetations. He needs to have a mitral valve repair and tricuspid valve repair. The heart catheterization is to assess his coronaries before the surgery. APPROACH: Right radial artery. COMPLICATION: None. LEVEL OF SEDATION: Moderate with sedation length of 16 minutes. PROCEDURE DESCRIPTION: After obtaining an informed consent, the patient was brought to the cardiac laborer tin can. The right radial artery was cannulated using micropuncture technique. Then I placed a 5- Armenian sheath in the right radial artery. I gave the patient 2 mg of verapamil IA and 10,000 units of heparin IV. Subsequently I did selective right and left coronary angiogram using JR4 and JL3.5 catheters. Left heart catheterization was performed using the JR4 catheter. The procedure was completed without any complication. SELECTIVE CORONARY ANGIOGRAM: 1. The right coronary artery is a large caliber vessel. It is a dominant vessel. The RCA has intermediate disease in the midportion appeared to be in the range of 50% to 60%. Distally appeared to be angiographically normal and bifurcates into PDA and PLV branches, both appeared to be angiographically normal. 2. The left main is hazy distally with a lesion appeared to be in the range of 50%. The lesion is complex lesion involving the bifurcation of circumflex as well as LAD. 3. The left circumflex is a large caliber vessel. It is a codominant vessel. The left circumflex itself appeared to be angiographically normal. Distally, it bifurcates into PDA and PLV branches. Proximally gives rise into a high takeoff obtuse marginal branch which worked as ramus intermedius, which seems to be angiographically normal. 4. The LAD: The proximal LAD appeared to be angiographically normal. It gives rise into a large first diagonal, which seems to be angiographically normal. The mid and distal LAD appeared to be angiographically normal. HEMODYNAMIC: The left ventricular end-diastolic pressure was 8 mmHg without significant gradient across the aortic valve. CONCLUSION: 1. Distal left main disease appeared to be in the range of 50% to 60%. 2. Intermediate disease involving the mid right coronary artery appeared to be in the range of 50% to 60%. POSTPROCEDURE MANAGEMENT: The patient will be referred for cardiothoracic surgeon for the evaluation of mitral valve repair as well as tricuspid valve repair with coronary artery bypass grafting. MMHOWARD / CARISSA: [id number] /
[2019-03-22] MEDS ORDERED: HYDROcodone/APAP 10-325MG 1 EACH TAB ONE (09:05)
[2019-03-22 12:31] VITALS: BP 108/57; PULSE 57; RESP 18
== END 2019-03-22 12:46 | disposition home or self-care (01) ==
LOC: CATHCVL 06:40
PROVIDERS: ATTEND Internal Medicine Interventional Cardiology
DX: I34.0 Nonrheumatic mitral (valve) insufficiency (principal); I36.1 Nonrheumatic tricuspid (valve) insufficiency; Z68.41 Body mass index [BMI] 40.0-44.9, adult; E78.5 Hyperlipidemia, unspecified; I27.20 Pulmonary hypertension, unspecified; G47.33 Obstructive sleep apnea (adult) (pediatric); I73.9 Peripheral vascular disease, unspecified; E11.9 Type 2 diabetes mellitus without complications; F17.210 Nicotine dependence, cigarettes, uncomplicated; E66.01 Morbid (severe) obesity due to excess calories; Z79.84 Long term (current) use of oral hypoglycemic drugs; Z79.82 Long term (current) use of aspirin; Z79.890 Hormone replacement therapy; Z79.899 Other long term (current) drug therapy; Z88.1 Allergy status to other antibiotic agents; Z91.040 Latex allergy status
CPT/HCPCS: 93458; C1769; C1894; J2001; J1644; Q9967; J2250

== ENCOUNTER 2019-08-18 22:37 | Emergency (ER) | payer OTHER ==
[~2019-08-18 22:37] MED LIST changes: -MIDAZOLAM 2 MG/2 ML VIAL IVP ONE; +SODIUM BICARB 8.4% 50 ML SYR (1 MEQ/ML) IV STA; -SODIUM CHLORIDE 0.9% 500 ML 500 ML IV ONE; -fentaNYL (PF) 50 MCG/ML 2 ML AMP IVP ONE; -fentaNYL (PF) 50 MCG/ML 2 ML AMP ONE
[2019-08-18] MEDS ORDERED: SODIUM CHLORIDE 0.9% 1,000 ML IV ONE ×2 (22:38→23:21)
[2019-08-18] MEDS ORDERED: SUCCINYLCHOLINE CHLORIDE VIAL 200 MG/10 ML VIAL IV STA (22:38)
[2019-08-18] MEDS ORDERED: ETOMIDATE 2 MG/ML 10 ML VIAL IVP STA (22:38)
[2019-08-18] MEDS ORDERED: CALCIUM CHLORIDE 100 MG/ML 10 ML SYRINGE IVP STA (22:41)
[2019-08-18] MEDS ORDERED: EPINEPHrine 10 ML SYRINGE (0.1 MG/ML) IV STA (22:42)
[2019-08-18] MEDS ORDERED: NOREPINEPHRINE 8 MG in SODIUM CHLORIDE 0.9% 250 ML IV SCH (22:47)
[2019-08-18 23:06] LABS: Glucose,Whole Blood 196 mg/dL (75-99)
[2019-08-18] MEDS ORDERED: EPINEPHrine 1 MG/ML 1 ML AMP IV STA (23:25)
[2019-08-19 00:04] VITALS: BP 56/26; PULSE 77; RESP 48
--- NOTE | 2019-08-19 00:24 | ED ---
Altered Mental Status HPI - General Chief Complaint: Altered Mental Status Stated Complaint: Unresponsive Time Seen by Provider: 08/18/19 22:40 Source: EMS, RN notes reviewed, old records reviewed Mode of arrival: EMS Limitations: language barrier, altered mental status, physical limitation - History of Present Illness Initial Comments: This is a 51-year-old male the ER for evaluation. Patient presents today for evaluation regarding unresponsiveness decreased level of responsiveness. Patient is competent medical history significant multiple bouts with sepsis. Today patient presents by EMS with family, called EMS secondary to patient not feeling well as afternoon. He took a shower once take a nap noticed when she checked from that he wasn't looking to be feeling too well and his color was off, at that point she called an ambulance, patient was able to respond but when EMS (questioning is responsiveness declined been noticing to have a low heart rate and then eventually began is not responding verbally. EMS to give adenosine were assisting ventilations with Bag Valve Mask, patient continuing to be increasingly bradycardic, they did do transcutaneous pacing. Patient arrives in emergency room unresponsive with no purposeful neurological movement, patient did have pulse MD Complaint: altered mental status, decreased responsiveness, weakness -: hour(s) Severity: severe Consistency of Symptoms: getting worse Context: other (recent mitral valve replacement surgery) Associated Symptoms: weakness, other (unresponsiveness, bradycardia, hypoxia, apnea) Treatments Prior to Arrival: IV fluid, oxygen (BVM), other pre-hospital medication (atropine) - Related Data Home Medications Medication Instructions Recorded Confirmed Aspirin 81 mg PO 1200 10/25/15 03/22/19 Furosemide [Lasix] 40 mg PO 1200 10/25/15 03/22/19 Hydrocodone/Acetaminophen [[place] 1 - 2 tab PO Q4H PRN 10/25/15 03/22/19 10-325] Levothyroxine Sodium [Synthroid] 200 mcg PO MOTUWETHFR 10/25/15 03/22/19 Simvastatin [Zocor] 40 mg PO HS 10/25/15 03/22/19 metFORMIN HCL 1,000 mg PO BID 10/25/15 03/22/19 Ergocalciferol (Vitamin D2) 50,000 unit PO LU 09/06/18 03/22/19 [Vitamin D2] Levothyroxine Sodium [Synthroid] 300 mcg PO SUSA 09/06/18 03/22/19 Morphine Sulfate ER [Ms Contin] 30 mg PO TID PRN 09/06/18 03/22/19 Potassium Chloride ER [K-Dur 20] 20 meq PO BID 09/06/18 03/22/19 Sildenafil Citrate 20 - 100 mg PO DAILY PRN 09/06/18 03/22/19 Venlafaxine HCl [Effexor XR] 75 mg PO 1200 09/06/18 03/22/19 Allergies Allergy/AdvReac Type Severity Reaction Status Date / Time ceftriaxone [From Rocephin] Allergy NEDRA Verified 08/18/19 22:45 SYNDROME latex Allergy Rash/Hives Verified 08/18/19 22:45 vancomycin Allergy NEDRA Verified 08/18/19 22:45 SYNDROME Review of Systems ROS Statement: Those systems with pertinent positive or pertinent negative responses have been documented in the HPI. ROS Other: All systems not noted in ROS Statement are negative. Past Medical History Past Medical History: Diabetes Mellitus, Renal Disease, Thyroid Disorder Additional Past Medical History / Comment(s): sepsis with unknown etiology. 2006 or 2006 sepsis requiring mechanical ventilation, pressure ulcers on ankles in the past, renal failure with dialysis in 2005/2006, neuropathy bilateral legs and feet, hypothyroidism, lower leg edema at times, L leg fracture as child. STAGE III RENAL FAILURE History of Any Multi-Drug Resistant Organisms: None Reported Past Surgical History: Tonsillectomy Additional Past Surgical History / Comment(s): 2005/2006 tracheostomy, Jesus Manuel catheter in and out, piccline in and out. TORSTEN Past Anesthesia/Blood Transfusion Reactions: No Reported Reaction Additional Past Anesthesia/Blood Transfusion Reaction / Comment(s): Pt has received blood without reaction in the past. Past Psychological History: Depression Smoking Status: Former smoker - Past Family History Father History Unknown: Yes Additional Family Medical History / Comment(s): Pt was adopted and does not know any family health hx. Mother History Unknown: Yes Family Medical History: Unable to Obtain Additional Family Medical History / Comment(s): Pt was adopted and does not know any family health hx. General Exam Limitations: altered mental status, physical limitation General appearance: obtunded, in distress, obese Head exam: Present: atraumatic, normocephalic, normal inspection Eye exam: Present: normal appearance, other (pupils fixed and dilated). Absent: scleral icterus, conjunctival injection, periorbital swelling ENT exam: Present: normal exam, mucous membranes moist Neck exam: Present: normal inspection. Absent: tenderness, meningismus, lymphadenopathy Respiratory exam: Present: rhonchi, accessory muscle use (agnoal respirations), decreased breath sounds, prolonged expiratory. Absent: respiratory distress, wheezes, rales, stridor Cardiovascular Exam: Present: bradycardia (w transcutaneously pacing), normal heart sounds. Absent: systolic murmur, diastolic murmur, rubs, gallop, clicks GI/Abdominal exam: Present: soft, normal bowel sounds. Absent: distended, tenderness, guarding, rebound, rigid Extremities exam: Present: normal inspection, full ROM, normal capillary refill. Absent: tenderness, pedal edema, joint swelling, calf tenderness Back exam: Present: normal inspection Neurological exam: Present: altered (unresponsive) Skin exam: Present: cyanosis, pallor, mottled, other (cold). Absent: rash Course Vital Signs 08/18/19 08/18/19 08/18/19 22:39 22:47 22:54 Pulse Rate 25 L 56 L Respiratory 28 H 34 H Rate Blood Pressure 145/93 95/27 O2 Sat by Pulse 73 L 98 Oximetry 08/18/19 08/18/19 08/18/19 23:05 23:25 23:36 Pulse Rate 53 L 86 71 Respiratory 30 H 40 H 38 H Rate Blood Pressure 71/37 93/52 115/58 O2 Sat by Pulse 87 L 57 L 50 L Oximetry 08/18/19 08/18/19 08/18/19 23:40 23:46 23:50 Pulse Rate 70 79 67 Respiratory 34 H 42 H 48 H Rate Blood Pressure 89/60 98/63 92/49 O2 Sat by Pulse 56 L 53 L 64 L Oximetry 08/18/19 08/19/19 23:55 00:03 Pulse Rate 64 77 Respiratory 36 H 48 H Rate Blood Pressure 49/25 56/26 O2 Sat by Pulse 60 L 49 L Oximetry - Reevaluation(s) Reevaluation #1: 08/19/19 00:25 medical record is reviewed Reevaluation #2: 08/19/19 00:26 spoke w family aware of grave condition, decision to continue resuscitative efforts. patient continuing to deteriorate, BBP dropppping despite maximum vasopressor therapy and pacing. spoke with elizabeth decision to remove transvenous pacing patient asystolic, apneic, pupils fixed and dilated, no heart sounds family is at bedside decision to pronounce patient at 08/19/19 00:39 Reevaluation #3: 08/19/19 01:20 spoke with medical office rep aware patient has passed Dr Robert PHAM paged re patients passing 08/19/19 00:39 - Consultations Consultation #1: spoke w Dr Duckworth, surgery and recent medical history is given, complications and causation is discussed, patient non neurologic, not stable for transfer back to re postOp, or for transvenous pacing. Medical Decision Making - Medical Decision Making 51 female presenting from. Tachycardic and hypoxic cardiopulmonary arrest, patient never able to return to urinate her period with no neurological function throughout ER stay, patient admits we will pulse continued to deteriorate, patient remained Unresponsive, multiple consultations with family said no CPR we'll continue maximal medication therapy and ACLS including vasopressors and transcutaneous pacing, patient was unresponsive to support, patient was pronounced at 00 39 apneic, asytolic, pupils fixed and dilated, family present at bedside - Lab Data Lab Results 08/18/19 Range/Units 22:46 POC Glucose (mg/dL) 196 H (75-99) mg/dL POC Glu Crabbing Machine Operator ID Traci Austin Critical Care Time Critical Care Time: Yes Total Critical Care Time: 65 Disposition Clinical Impression: Bradycardia, Cardiopulmonary arrest Disposition: Condition: Critical Referrals: None,Stated [Primary Care Provider] - 1-2 days Preliminary Cause of : CPA
== END 2019-08-19 00:39 | disposition expired ==
LOC: EC 22:37
DX: I46.9 Cardiac arrest, cause unspecified (principal); E11.40 Type 2 diabetes mellitus with diabetic neuropathy, unspecified; E03.9 Hypothyroidism, unspecified; F32.9 Major depressive disorder, single episode, unspecified; E11.22 Type 2 diabetes mellitus with diabetic chronic kidney disease; N18.3 Chronic kidney disease, stage 3 (moderate); E66.9 Obesity, unspecified; Z86.19 Personal history of other infectious and parasitic diseases; Z95.2 Presence of prosthetic heart valve; Z99.2 Dependence on renal dialysis; Z87.891 Personal history of nicotine dependence; Z79.82 Long term (current) use of aspirin; Z79.84 Long term (current) use of oral hypoglycemic drugs; Z79.890 Hormone replacement therapy; Z79.899 Other long term (current) drug therapy; Z88.1 Allergy status to other antibiotic agents; Z91.040 Latex allergy status; Z87.09 Personal history of other diseases of the respiratory system; Z68.41 Body mass index [BMI] 40.0-44.9, adult
CPT/HCPCS: 99291; 96365; 96375 ×4; 96361; 36415; J0171 ×2; J0330; 94002